=== PATIENT | male | born 1965 | race Hispanic/Latino ===

== ENCOUNTER 2018-04-19 12:48 | Emergency (ER) | payer OTHER, SELFPAY ==
[~2018-04-19] VITALS: Ht 157.5 cm; Wt 65.8 kg
[~2018-04-19 12:48] MED LIST: NKM; ONDANSETRON ODT4 MG PO; PHENERGAN25 M1 ORAL
[2018-04-19 13:00] VITALS: BP 135/85
[2018-04-19 15:00] VITALS: BP 125/78
--- NOTE | 2018-04-19 15:41 | Emergency Room Report ---
History of Present Illness General Chief Complaint: Alcohol Intoxication Source: Patient Present Illness HPI The patient is brought in by paramedics. Initially they stated that he just wanted a place to sober up. When he was brought back and evaluated he complains about 2 weeks of epigastric abdominal pain. He states he's also been vomiting blood and there is blood when he is moving his bowels. He states his been seen in hospitals prior to his visit with us here. He doesn't know the diagnosis. He does drink alcohol daily. He denies seizures. The pain is 9-10/ 10 at this time. He states it's constant and burning. He gets the shakes when he stops drinking. No fevers, chills, dysuria, extremity pain, chest pain, cough, dyspnea, headache , trauma. He's been seen here with abdominal pain and hiccups in the past. Also has dx of thrombocytopenia. Allergies: Coded Allergies: No Known Allergies (Verified , 04/13/11) Patient History Past Medical History: see triage record Social History: Reports: alcohol use Social History Narrative on straight Reviewed Nursing Documentation: PMH: Agreed; PSxH: Agreed Nursing Documentation-PMH Past Medical History: No History, Except For Hx Cardiac Problems: No Hx Diabetes: Yes Hx Cancer: No Hx Gastrointestinal Problems: Yes - gerd hx abdominal problems History Of Psychiatric Problem: Yes - etoh abuse Hx Neurological Problems: No Review of Systems All Other Systems: negative except mentioned in HPI Physical Exam Vital Signs Date Time Temp Pulse Resp B/P (MAP) Pulse Ox O2 Delivery O2 Flow Rate FiO2 04/19/18 12:37 98.2 98 16 135/85 96 Room Air 98.2 Sp02 EP Interpretation: reviewed, normal General Appearance: well appearing, no apparent distress, GCS 15 Head: normocephalic Eyes: bilateral eye PERRL, bilateral eye Scleral Injection ENT: moist mucus membranes Neck: supple Respiratory: lungs clear, normal breath sounds Cardiovascular #1: regular rate, rhythm Cardiovascular #2: 2+ radial (R) Gastrointestinal: normal inspection, normal bowel sounds, no mass, non- distended, no guarding, no rebound, tenderness Musculoskeletal: back normal, gait/station normal, normal range of motion Neurologic: alert, oriented x3, grossly normal Psychiatric: anxious Skin: normal inspection, warm/dry Medical Decision Making Diagnostic Impression: Primary Impression: Pancreatitis Qualified Codes: K85.20 - Alcohol induced acute pancreatitis without necrosis or infection Additional Impressions: Abdominal pain Qualified Codes: R10.13 - Epigastric pain alcohol intoxication Thrombocytopenia Vomiting Qualified Codes: R11.2 - Nausea with vomiting, unspecified Anemia Qualified Codes: D50.8 - Other iron deficiency anemias ER Course Patient presents with a call abuse and abdominal pain. Differential includes gastritis, pancreatitis, GERD, peptic ulcer disease and alcohol intoxication amongst others. He'll be evaluated with laboratory. He'll be given Zofran and Pepcid and oral medication. Labs with elevated lipase and BA. Also H/H lower than last tested - significantly. Platelets also low. LFTs elevated. INR normal. IV hydration begun and reglan given. Concern over possible GI bleed and pancreatitis. Patient needs hospitalization. Also at risk for alcohol withdrawal. Improved. Discussed with Dr. Self who accepts the patient. Laboratory Tests Test 04/19/18 16:14 White Blood Count 10.0 K/UL (4.8-10.8) Red Blood Count 3.58 M/UL (4.70-6.10) L Hemoglobin 8.5 G/DL (14.2-18.0) L Hematocrit 29.3 % (42.0-52.0) L Mean Corpuscular Volume 82 FL (80-99) Mean Corpuscular Hemoglobin 23.6 PG (27.0-31.0) L Mean Corpuscular Hemoglobin Concent 28.8 G/DL (32.0-36.0) L Red Cell Distribution Width 18.6 % (11.6-14.8) H Platelet Count 79 K/UL (150-450) L Mean Platelet Volume 9.3 FL (6.5-10.1) Neutrophils (%) (Auto) % (45.0-75.0) Lymphocytes (%) (Auto) % (20.0-45.0) Monocytes (%) (Auto) % (1.0-10.0) Eosinophils (%) (Auto) % (0.0-3.0) Basophils (%) (Auto) % (0.0-2.0) Differential Total Cells Counted 100 Neutrophils % (Manual) 71 % (45-75) Lymphocytes % (Manual) 29 % (20-45) Monocytes % (Manual) 0 % (1-10) L Eosinophils % (Manual) 0 % (0-3) Basophils % (Manual) 0 % (0-2) Band Neutrophils 0 % (0-8) Platelet Estimate Decreased L Platelet Morphology Normal Hypochromasia 1+ Prothrombin Time 10.8 SEC (9.30-11.50) Prothrombin Time INR 1.0 (0.9-1.1) PTT 27 SEC (23-33) Urine Color [place] Urine Appearance Cloudy Urine pH 6 (4.5-8.0) Urine Specific [place] 1.020 (1.005-1.035) Urine Protein 3+ (NEGATIVE) H Urine Glucose (UA) Negative (NEGATIVE) Urine Ketones 4+ (NEGATIVE) H Urine Occult Blood 2+ (NEGATIVE) H Urine Nitrite Negative (NEGATIVE) Urine Bilirubin 1+ (NEGATIVE) H Urine Ictotest Negative Urine Urobilinogen 4 MG/DL (0.0-1.0) H Urine Leukocyte Esterase 1+ (NEGATIVE) H Urine RBC 2-4 /HPF (0 - 0) H Urine WBC 5-10 /HPF (0 - 0) H Urine Squamous Epithelial Cells Occasional /LPF Urine Amorphous Sediment Moderate /LPF (NONE) H Urine Bacteria Few /HPF (NONE) Urine Granular Casts 0-2 /LPF (NONE) H Sodium Level 137 MMOL/L (136-145) Potassium Level 4.3 MMOL/L (3.5-5.1) Chloride Level 94 MMOL/L (98-107) L Carbon Dioxide Level 21 MMOL/L (21-32) Anion Gap 22 mmol/L (5-15) H Blood Urea Nitrogen 21 mg/dL (7-18) H Creatinine 1.2 MG/DL (0.55-1.30) Estimate Glomerular Filtration Rate > 60 mL/min (>60) Glucose Level 115 MG/DL (74-106) H Calcium Level 8.9 MG/DL (8.5-10.1) Total Bilirubin 1.1 MG/DL (0.2-1.0) H Direct Bilirubin 0.6 MG/DL (0.0-0.3) H Aspartate Amino Transferase (AST) 112 U/L (15-37) H Alanine Aminotransferase (ALT) 86 U/L (12-78) H Alkaline Phosphatase 96 U/L (46-116) Total Creatine Kinase 85 U/L (26-308) Total Protein 9.1 G/DL (6.4-8.2) H Albumin 4.5 G/DL (3.4-5.0) Globulin 4.6 g/dL Albumin/Globulin Ratio 1.0 (1.0-2.7) Lipase 1700 U/L (73-393) H Urine Opiates Screen Negative (NEGATIVE) Urine Barbiturates Screen Negative (NEGATIVE) Phencyclidine (PCP) Screen Negative (NEGATIVE) Urine Amphetamines Screen Negative (NEGATIVE) Urine Benzodiazepines Screen Negative (NEGATIVE) Urine Cocaine Screen Negative (NEGATIVE) Urine Marijuana (THC) Screen Negative (NEGATIVE) Serum Alcohol 393 mg/dL Other X-Ray Diagnostic Results Other X-Ray Diagnostic Results : X-Ray ordered: abd # of Views/Limited Vs Complete: 1 View Indication: Other EP Interpretation: Yes Interpretation: nonspecific bowel gas, no sbo, other - no masses Impression: No acute disease Electronically Signed by: Lukas Mujica MD Last Vital Signs Date Time Temp Pulse Resp B/P (MAP) Pulse Ox O2 Delivery O2 Flow Rate FiO2 04/19/18 20:20 97.8 108 16 142/84 97 Room Air 97.8 Status: improved Disposition: XFER SHT-TRM HOSP Condition: Serious Lukas Mujica M.D. Apr 19, 2018 15:41
[2018-04-19] MEDS ORDERED: Lidocaine 2% Visc 15ml soln ORAL ONE (15:45)
[2018-04-19] MEDS ORDERED: Mylanta II UD 30ml ORAL ONE (15:45)
[2018-04-19 17:00] VITALS: BP 121/74
[2018-04-19 17:01] LABS: APPEARANCE,URINE CLOUDY; BILIRUBIN, URINE 1+ (NEGATIVE); GLUCOSE, URINE (UA) NEGATIVE (NEGATIVE); KETONES,URINE 4+ (NEGATIVE); LEUKOCYTE ESTERASE ,URINE 1+ (NEGATIVE); NITRITE,URINE NEGATIVE (NEGATIVE); PH,URINE 6 (4.5-8.0); PROTEIN,URINE 3+ (NEGATIVE); UROBILINOGEN,URINE 4 MG/DL (0.0-1.0)
[2018-04-19 17:05] LABS: HEMATOCRIT 29.3 % (42.0-52.0); HEMOGLOBIN 8.5 G/DL (14.2-18.0); MEAN CORPUSCULAR VOLUME 82 FL (80-99); PLATELET COUNT 79 K/UL (150-450); RED BLOOD COUNT 3.58 M/UL (4.70-6.10); RED CELL DISTRIBUTION WIDTH 18.6 % (11.6-14.8)
[2018-04-19 17:07] LABS: COLOR,URINE AMBER
[2018-04-19 17:26] LABS: ANION GAP 22 mmol/L (5-15); BLOOD UREA NITROGEN 21 mg/dL (7-18); CALCIUM 8.9 MG/DL (8.5-10.1); CARBON DIOXIDE 21 MMOL/L (21-32); CHLORIDE 94 MMOL/L (98-107); CREATININE 1.2 MG/DL (0.55-1.30); POTASSIUM 4.3 MMOL/L (3.5-5.1); SODIUM 137 MMOL/L (136-145)
[2018-04-19 17:39] LABS: CREATINE KINASE 85 U/L (26-308)
[2018-04-19 17:40] LABS: ALANINE AMINOTRANSFERASE 86 U/L (12-78); ALBUMIN 4.5 G/DL (3.4-5.0); ALKALINE PHOSPHATASE 96 U/L (46-116); ASPARTATE AMINO TRANSFERASE 112 U/L (15-37); BILIRUBIN,TOTAL 1.1 MG/DL (0.2-1.0)
[2018-04-19 17:41] LABS: BILIRUBIN,DIRECT 0.6 MG/DL (0.0-0.3)
[2018-04-19] MEDS ORDERED: DiphenhydrAMINE 50mg/ml Inj IVP ONE (18:30)
[2018-04-19] MEDS ORDERED: Metoclopramide 10mg/2ml Inj IVP ONE (18:30)
[2018-04-19 19:00] VITALS: BP 118/69
[2018-04-19 20:20] VITALS: BP 142/84
--- NOTE | 2018-04-20 10:50 | Diagnostic Imaging Report ---
Indication: Abdominal pain Technique: Supine view of the abdomen Comparison: [employer] image from 01/05/[address] Findings: Bowel gas pattern is unremarkable. There is a subacute right posterior ninth rib fracture deformity. This demonstrates callus formation but persistent fracture line. No unusual masses or calcifications Impression: No acute process
== END 2018-04-19 20:20 | disposition short-term general hospital (02) ==
LOC: EDBD 12:48 → EMR 13:45
DX: K85.20 Alcohol induced acute pancreatitis without necrosis or infection (principal); R10.13 Epigastric pain; D69.6 Thrombocytopenia, unspecified; D50.8 Other iron deficiency anemias; F10.129 Alcohol abuse with intoxication, unspecified; Y90.8 Blood alcohol level of 240 mg/100 ml or more; E11.9 Type 2 diabetes mellitus without complications; K21.9 Gastro-esophageal reflux disease without esophagitis
CPT/HCPCS: 36415; 74018; 80053; 80307; 80329; 81003; 82248; 82550; 83690; 85007; 85025; 85610; 85730; 99285; J1200; J2765

== ENCOUNTER 2019-05-25 21:28 | Emergency (ER) | payer OTHER ==
[~2019-05-25] VITALS: Ht 165.1 cm; Wt 72.6 kg
[2019-05-25 21:30] VITALS: BP 151/89
--- NOTE | 2019-05-25 21:32 | NUR ---
ED Nurse Note: Patient biba RA 26 from home c/o non radiating left sided chest pain that he rates a 8/, states that this has been an on going issue for the past 4 days, patient does have a history of cirrhosis and admits to drinking earlier today, no skin issues noted. patient is alert and oriented x4. IV started on right forearm 20 gauge, patient presents with an elevated heart rate of 125 in the EKG
[2019-05-25 22:08] LABS: HEMATOCRIT 45.4 % (42.0-52.0); WHITE BLOOD COUNT 7.2 K/UL (4.8-10.8)
--- NOTE | 2019-05-25 22:08 | Emergency Room Report ---
History of Present Illness General Chief Complaint: Chest Pain Source: Patient Present Illness HPI This is a 53-year-old male with a history of alcoholism and cirrhosis. He presents with left-sided chest pain is been ongoing for 4 to 5 days. Constant in nature. Worse tonight. No radiation. Has been drinking. Denies any fever chills but denies any nausea or vomiting. Nothing made it better. Nothing made it worse. No exertional component. Allergies: Coded Allergies: No Known Allergies (Verified , 04/13/11) Patient History Past Medical History: see triage record, old chart reviewed Past Surgical History: other Pertinent Family History: none Social History: Denies: smoking Immunizations: other Reviewed Nursing Documentation: PMH: Agreed; PSxH: Agreed Nursing Documentation-PMH Past Medical History: No History, Except For Hx Cardiac Problems: No - PNA CIRRHOSIS Hx Diabetes: Yes Hx Cancer: No Hx Gastrointestinal Problems: Yes - gerd Hx Neurological Problems: No Review of Systems Eye: Denies: eye pain, blurred vision ENT: Denies: ear pain, nose congestion, throat swelling Respiratory: Denies: cough, shortness of breath Cardiovascular: Reports: chest pain; Denies: palpitations Gastrointestinal: Denies: abdominal pain, diarrhea, nausea, vomiting Musculoskeletal: Denies: back pain, joint pain Skin: Denies: rash Neurological: Denies: headache, numbness Endocrine: Denies: increased thirst, increased urine Hematologic/Lymphatic: Denies: easy bruising All Other Systems: negative except mentioned in HPI Physical Exam Vital Signs Date Time Temp Pulse Resp B/P (MAP) Pulse Ox O2 Delivery O2 Flow Rate FiO2 05/25/19 21:29 98.6 134 14 127/86 (100) 95 Room Air Vitals with tachycardia Sp02 EP Interpretation: reviewed, normal General Appearance: well appearing, no apparent distress, alert, Chronically Ill - Intoxicated Head: normocephalic, atraumatic Eyes: bilateral eye PERRL, bilateral eye EOMI ENT: hearing grossly normal, normal pharynx Neck: full range of motion, supple, no meningismus Respiratory: chest non-tender, lungs clear, normal breath sounds Cardiovascular #1: regular rate, rhythm, no murmur, tachycardia - Heart rate 110 Gastrointestinal: normal bowel sounds, non tender, no mass, no organomegaly, no bruit, non-distended Musculoskeletal: back normal, gait/station normal, normal range of motion Psychiatric: mood/affect normal Medical Decision Making Diagnostic Impression: Primary Impression: Chest pain Qualified Codes: R07.9 - Chest pain, unspecified Additional Impressions: Alcohol intoxication Qualified Codes: F10.920 - Alcohol use, unspecified with intoxication, uncomplicated Alcoholic liver disease ER Course Patient presents with vague chest pain. Troponin negative. He does have evidence of alcoholic liver disease. No evidence of pancreatitis. He was getting tremulous after a few hours. I gave him Ativan and Librium. Heart rate improved greatly. Patient wants to go home now. No suicidal thoughts or homicidal thoughts. No criteria for 5150. EKG Diagnostic Results Rate: tachycardiac Rhythm: NSR ST Segments: other - NSST changes Rhythm Strip Diag. Results EP Interpretation: yes Rate: 100 Rhythm: NSR, no PVC's, no ectopy Last Vital Signs Date Time Temp Pulse Resp B/P (MAP) Pulse Ox O2 Delivery O2 Flow Rate FiO2 05/25/19 21:30 134 14 Room Air 05/25/19 21:30 98.6 151/89 95 Status: improved Disposition: HOME, SELF-CARE Condition: Stable Scripts Chlordiazepoxide (Chlordiazepoxide HCl) 25 Mg Capsule 25 MG ORAL THREE TIMES A DAY, #21 CAP 0 Refills Prov: Kings Carrillo MD 05/26/19 Additional Instructions: Stop drinking alcohol. Follow-up with rehab within a week. Follow-up with your doctor in 7 days. Return if worse. Kings Carrillo MD May 25, 2019 22:08
[2019-05-25 22:09] LABS: MEAN CORPUSCULAR VOLUME 97 FL (80-99); PLATELET COUNT 59 K/UL (150-450); RED CELL DISTRIBUTION WIDTH 11.3 % (11.6-14.8)
[2019-05-25 22:13] LABS: ANION GAP 18 mmol/L (5-15); BLOOD UREA NITROGEN 16 mg/dL (7-18); CALCIUM 9.3 MG/DL (8.5-10.1); CARBON DIOXIDE 23 MMOL/L (21-32); CHLORIDE 96 MMOL/L (98-107); CREATININE 1.1 MG/DL (0.55-1.30); POTASSIUM 4.1 MMOL/L (3.5-5.1); SODIUM 137 MMOL/L (136-145)
[2019-05-25 22:24] LABS: APPEARANCE,URINE CLEAR; BILIRUBIN, URINE 1+ (NEGATIVE); GLUCOSE, URINE (UA) NEGATIVE (NEGATIVE); KETONES,URINE 4+ (NEGATIVE); LEUKOCYTE ESTERASE ,URINE NEGATIVE (NEGATIVE); NITRITE,URINE NEGATIVE (NEGATIVE); PH,URINE 6 (4.5-8.0); PROTEIN,URINE 4+ (NEGATIVE); UROBILINOGEN,URINE 8 MG/DL (0.0-1.0)
[2019-05-25 22:27] LABS: COLOR,URINE AMBER
[2019-05-25 22:27] LABS: ALANINE AMINOTRANSFERASE 113 U/L (12-78); ALBUMIN 4.3 G/DL (3.4-5.0); ALKALINE PHOSPHATASE 95 U/L (46-116); ASPARTATE AMINO TRANSFERASE 198 U/L (15-37); BILIRUBIN,DIRECT 0.5 MG/DL (0.0-0.3); BILIRUBIN,TOTAL 1.2 MG/DL (0.2-1.0); CKMB 1.2 NG/ML (0.0-3.6); CREATINE KINASE 62 U/L (26-308)
[2019-05-25] MEDS ORDERED: LORazepam Inj 2mg/ml 1ml IV ONE (23:45)
[2019-05-25] MEDS ORDERED: chlordiazePOXIDE 25mg Cap ORAL ONE (23:45)
[2019-05-26] MEDS ORDERED: LIBRIUM25 MG ORAL (01:27)
--- NOTE | 2019-05-26 01:30 | NUR ---
ER DISCHARGE NOTE: Patient is cleared to be discharged per ERMD, pt is aox4, on room air, with stable vital signs. pt was given dc and prescription instructions, pt was able to verbalize understanding, pt id band and iv site removed without complications. pt is able to ambulate with steady gait. pt took all belongings.
[2019-05-26 01:34] VITALS: BP 144/82
--- NOTE | 2019-05-26 14:06 | Diagnostic Imaging Report ---
Indication: Chest pain Comparison: 04/03/2014 A single view chest radiograph was obtained. Findings: No definite infiltrate or pulmonary vascular congestion identified. The heart is enlarged. The aorta is mildly enlarged consistent with atherosclerotic vascular disease. The bones are osteopenic. There are old rib fractures on the left. Impression: No acute disease
--- NOTE | 2019-05-26 17:04 | Cardiology Report ---
APPROVED REPORT EKG Measurement Heart [id number] NV 88P [id number] Sinus tachycardia with short NV Cannot rule out Anterior infarct, age undetermined Abnormal ECG
== END 2019-05-26 01:35 | disposition home or self-care (01) ==
LOC: EDBD 21:28 → EMR 22:00
DX: R07.9 Chest pain, unspecified (principal); F10.129 Alcohol abuse with intoxication, unspecified; K70.9 Alcoholic liver disease, unspecified; E11.9 Type 2 diabetes mellitus without complications; K21.9 Gastro-esophageal reflux disease without esophagitis; R00.0 Tachycardia, unspecified
CPT/HCPCS: 36415; 71045; 80053; 80307; 80329; 81003; 82248; 82550; 82553; 83690; 83880; 84484; 85007; 85025; 93005; 96361; 96374; 96375; 99284; S0028

== ENCOUNTER 2019-07-19 14:18 | Emergency (ER) | payer OTHER ==
[~2019-07-19] VITALS: Ht 162.6 cm; Wt 63.5 kg
[~2019-07-19 14:18] MED LIST changes: +LIBRIUM25 MG ORAL
--- NOTE | 2019-07-19 14:24 | NUR ---
ED Nurse Note: No family member available.
--- NOTE | 2019-07-19 14:30 | NUR ---
ED Nurse Note: Pt brought in by EMS from home due to medial abd. pain x 6 days with N/V. Pt denies alcohol consumption but relative reported that pt drinks every night. AAO x4, ambulatory, follows commands with non labored breathing. Noted bilateral hand tremors and mild restlessness.
[2019-07-19 14:31] VITALS: BP 158/106
[2019-07-19] MEDS ORDERED: Metoclopramide 10mg/2ml Inj IVP ONE (15:00)
[2019-07-19 15:18] LABS: ANION GAP 22 mmol/L (5-15); BLOOD UREA NITROGEN 17 mg/dL (7-18); CALCIUM 9.1 MG/DL (8.5-10.1); CARBON DIOXIDE 20 MMOL/L (21-32); CHLORIDE 96 MMOL/L (98-107); POTASSIUM 4.4 MMOL/L (3.5-5.1); SODIUM 138 MMOL/L (136-145)
[2019-07-19 15:21] LABS: HEMATOCRIT 46.3 % (42.0-52.0); HEMOGLOBIN 15.5 G/DL (14.2-18.0); MEAN CORPUSCULAR VOLUME 97 FL (80-99); PLATELET COUNT 61 K/UL (150-450); RED BLOOD COUNT 4.75 M/UL (4.70-6.10); RED CELL DISTRIBUTION WIDTH 12.6 % (11.6-14.8); WHITE BLOOD COUNT 6.2 K/UL (4.8-10.8)
[2019-07-19 15:28] LABS: ALANINE AMINOTRANSFERASE 164 U/L (12-78); ALBUMIN 4.2 G/DL (3.4-5.0); ALKALINE PHOSPHATASE 91 U/L (46-116); ASPARTATE AMINO TRANSFERASE 286 U/L (15-37); BILIRUBIN,TOTAL 1.8 MG/DL (0.2-1.0)
[2019-07-19 15:29] LABS: BILIRUBIN,DIRECT 0.7 MG/DL (0.0-0.3)
[2019-07-19 16:30] VITALS: BP 139/90
[2019-07-19] MEDS ORDERED: Isovue-300 100ml vial INJ PRN (16:30)
[2019-07-19] MEDS ORDERED: LORazepam Inj 2mg/ml 1ml IV ONE (16:30)
[2019-07-19] MEDS ORDERED: Thiamine HCl 100 MG in D5W 55 ML IVPB ONE (16:30)
--- NOTE | 2019-07-19 16:30 | NUR ---
ED Nurse Note: Pt taken to CT via eduardo Kirk.
[2019-07-19 16:52] LABS: APPEARANCE,URINE CLEAR; BILIRUBIN, URINE 1+ (NEGATIVE); COLOR,URINE BROWN; GLUCOSE, URINE (UA) NEGATIVE (NEGATIVE); KETONES,URINE 4+ (NEGATIVE); LEUKOCYTE ESTERASE ,URINE 1+ (NEGATIVE); NITRITE,URINE NEGATIVE (NEGATIVE); PH,URINE 5 (4.5-8.0); PROTEIN,URINE 3+ (NEGATIVE); UROBILINOGEN,URINE 8 MG/DL (0.0-1.0)
--- NOTE | 2019-07-19 16:58 | Emergency Room Report ---
History of Present Illness General Chief Complaint: Abdominal Pain Source: Patient, EMS Present Illness HPI Patient is a 53-year-old male brought in by EMS. Per family member after increased abdominal discomfort and increased hiccups. Patient had been having this for several days persistently. He had prior history of alcohol abuse. He reports having some epigastric abdominal pain. He denies any hematemesis or bloody stools. Patient had not been having any bleeding episodes. He reportedly drinks daily. Allergies: Coded Allergies: No Known Allergies (Verified , 04/13/11) Patient History Past Medical History: see triage record Reviewed Nursing Documentation: PMH: Agreed; PSxH: Agreed Nursing Documentation-PMH Past Medical History: No History, Except For Hx Cardiac Problems: No - PNA CIRRHOSIS Hx Diabetes: Yes Hx Cancer: No Hx Gastrointestinal Problems: Yes - Liver problem Hx Neurological Problems: No Review of Systems All Other Systems: negative except mentioned in HPI Physical Exam Vital Signs Date Time Temp Pulse Resp B/P (MAP) Pulse Ox O2 Delivery O2 Flow Rate FiO2 07/19/19 14:20 97.3 110 25 172/107 (128) 100 Room Air Sp02 EP Interpretation: reviewed, normal General Appearance: normal inspection, well appearing, no apparent distress, alert, GCS 15, Chronically Ill Head: atraumatic ENT: normal ENT inspection, hearing grossly normal, normal voice Neck: normal inspection, full range of motion, supple, no bony tend Respiratory: normal inspection, lungs clear, normal breath sounds, no respiratory distress, no retraction, no wheezing Cardiovascular #1: regular rate, rhythm, no edema Gastrointestinal: normal inspection, normal bowel sounds, non tender, soft, no guarding, no hernia Genitourinary: no CVA tenderness Musculoskeletal: normal inspection, back normal, normal range of motion Neurologic: normal inspection, alert, oriented x3, responsive, 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 Differential diagnosis include was not limited to pancreatitis, gastritis, hepatitis among others. Because of complexity of patient's case laboratory tests and imaging studies were ordered. Patient was noted to have some evidence of chronic alcohol abuse. Patient was noted to have chronic hiccups. Patient was given IV fluids as well as antiemetics. Patient stated that he felt better and wanted to leave. Patient was advised that he had pancreatitis and was noted to be drinking alcohol recently. Patient was offered admission and was discussed with Dr. Melendez for possible transfer to [facility]. Patient stated he did not want to be hospitalized and wanted to leave the hospital immediately. Patient appears to be capable of self-care and does not appear to be holdable based on mental status. The patient was advised risk benefits alternatives of leaving AGAINST MEDICAL ADVICE and he indicated understanding and all questions are answered patient still continued want to leave and signed AGAINST MEDICAL ADVICE. Despite risks including but not limited to disability and worsening of current lifestyle. He was advised he could return at any time. Labs Test 07/19/19 14:30 07/19/19 16:05 White Blood Count 6.2 K/UL (4.8-10.8) Red Blood Count 4.75 M/UL (4.70-6.10) Hemoglobin 15.5 G/DL (14.2-18.0) Hematocrit 46.3 % (42.0-52.0) Mean Corpuscular Volume 97 FL (80-99) Mean Corpuscular Hemoglobin 32.6 PG (27.0-31.0) Mean Corpuscular Hemoglobin Concent 33.4 G/DL (32.0-36.0) Red Cell Distribution Width 12.6 % (11.6-14.8) Platelet Count 61 K/UL (150-450) Mean Platelet Volume 8.0 FL (6.5-10.1) Neutrophils (%) (Auto) % (45.0-75.0) Lymphocytes (%) (Auto) % (20.0-45.0) Monocytes (%) (Auto) % (1.0-10.0) Eosinophils (%) (Auto) % (0.0-3.0) Basophils (%) (Auto) % (0.0-2.0) Sodium Level 138 MMOL/L (136-145) Potassium Level 4.4 MMOL/L (3.5-5.1) Chloride Level 96 MMOL/L (98-107) Carbon Dioxide Level 20 MMOL/L (21-32) Anion Gap 22 mmol/L (5-15) Blood Urea Nitrogen 17 mg/dL (7-18) Creatinine 1.0 MG/DL (0.55-1.30) Estimat Glomerular Filtration Rate > 60 mL/min (>60) Glucose Level 105 MG/DL (74-106) Calcium Level 9.1 MG/DL (8.5-10.1) Total Bilirubin 1.8 MG/DL (0.2-1.0) Direct Bilirubin 0.7 MG/DL (0.0-0.3) Aspartate Amino Transf (AST/SGOT) 286 U/L (15-37) Alanine Aminotransferase (ALT/SGPT) 164 U/L (12-78) Alkaline Phosphatase 91 U/L (46-116) Troponin I 0.000 ng/mL (0.000-0.056) Total Protein 8.6 G/DL (6.4-8.2) Albumin 4.2 G/DL (3.4-5.0) Globulin 4.4 g/dL Albumin/Globulin Ratio 1.0 (1.0-2.7) Lipase 467 U/L (73-393) Serum Alcohol 339 mg/dL Urine Color Brown Urine Appearance Clear Urine pH 5 (4.5-8.0) Urine Specific [place] 1.020 (1.005-1.035) Urine Protein 3+ (NEGATIVE) Urine Glucose (UA) Negative (NEGATIVE) Urine Ketones 4+ (NEGATIVE) Urine Blood 3+ (NEGATIVE) Urine Nitrite Negative (NEGATIVE) Urine Bilirubin 1+ (NEGATIVE) Urine Urobilinogen 8 MG/DL (0.0-1.0) Urine Leukocyte Esterase 1+ (NEGATIVE) Last Vital Signs Date Time Temp Pulse Resp B/P (MAP) Pulse Ox O2 Delivery O2 Flow Rate FiO2 07/19/19 14:31 97.3 93 22 158/106 100 Room Air Status: improved Disposition: AGAINST MEDICAL ADVICE Condition: Stable Referrals: [facility],REFERRING (PCP) Ousmane Birmingham MD Jul 19, 2019 16:58
--- NOTE | 2019-07-19 17:03 | Diagnostic Imaging Report ---
Clinical Indication: Abdominal pain for 6 days, nausea, vomiting Technique: No oral contrast utilized, per emergency room physician request IV administration nonionic contrast. Venous obtained through the abdomen and pelvis. Multiplanar reconstructions were generated. Total dose length product 644.02 mGycm. CTDIvol(s) 11.36 mGy. Dose reduction achieved using automated exposure control Comparison: 10/15/2012 Findings: Lack of enteric contrast administration limits assessment of the GI tract. There is some image degradation due to respiratory motion artifact. The appendix is normal. There is colonic diverticulosis. No evidence of diverticulitis. There is equivocal mild wall thickening of the ascending colon and of the distal descending and sigmoid colon. No free or loculated intraperitoneal gas or fluid is evident. The distal esophagus demonstrates mild wall thickening and there may be a small sliding-type hiatal hernia. The stomach is otherwise unremarkable. The duodenum is unremarkable. The liver is diffusely hypoattenuating, consistent with fatty change. This is also evident previously. The gallbladder is unremarkable. The common bile duct is mildly ectatic, measuring up to 8 mm in diameter. An irregular high attenuation focus is seen adjacent to but probably not within the downstream common bile duct. It is probably within the pancreatic head, not evident previously. There is no intrahepatic biliary ductal dilatation. The pancreas, spleen, adrenals, left kidney are unremarkable. The right kidney demonstrates a 3 mm lower pole calyceal calculus which is not evident on the prior exam. No ureteral calculi, hydronephrosis, or hydroureter demonstrated. The bladder is unremarkable. The prostate is somewhat prominent. Somewhat enlarged peripancreatic nodes demonstrated on the previous study are not evident currently. The included lung bases are clear although degraded by motion artifact. The bones demonstrate degenerative spondylosis changes. There is unilateral L5 spondylolysis on the left. No associated spondylolisthesis. Impression: Limited assessment of the GI tract due to lack of enteric contrast demonstration. Exam is also somewhat limited due to artifact Equivocal areas of colon wall thickening, probably artifact of under distention but could indicate colitis. Correlate with clinical findings Colonic diverticulosis. No evidence of diverticulitis. Mild distal esophageal wall thickening, could indicate esophagitis. Fatty liver Mildly ectatic common bile duct, without definite downstream obstructive lesion. Correlate with liver function tests, consider MRCP if clinically indicated Pancreatic head calcification, not evident previously, could indicate history of chronic calcifying pancreatitis. 3 mm nonobstructive right lower pole intrarenal calculus Unilateral left L5 spondylolysis. No evidence of spondylolisthesis The CT scanner at [facility] is accredited by the [employer] and the scans are performed using protocols designed to limit radiation exposure to as low as reasonably achievable to attain images of sufficient resolution adequate for diagnostic evaluation.
--- NOTE | 2019-07-19 17:07 | NUR ---
ED Nurse Note: Pt decided to sign AMA form and Dr Birmingham aware. Pt verbalized understanding of potential complications of not getting treatment. ER charge nurse notified.
[2019-07-19 17:24] VITALS: BP 142/77
--- NOTE | 2019-07-19 17:24 | NUR ---
ER DISCHARGE NOTE: Pt signed AMA form and verbalized understanding of potential complications of not getting hospitalized. Pt aware of pancreatitis and was told he can go back to ED at anytime. ID band/IV removed. AAO x4 and ambulates with steady agit. Pt took all belongings and left with his family members.
== END 2019-07-19 17:24 | disposition home or self-care (01) ==
LOC: EDBD 14:18 → EMR 14:48 → EDBEDREQ 16:25 → EMR 17:24
DX: K85.90 Acute pancreatitis without necrosis or infection, unspecified (principal); R10.9 Unspecified abdominal pain; F10.129 Alcohol abuse with intoxication, unspecified; K74.60 Unspecified cirrhosis of liver; E11.9 Type 2 diabetes mellitus without complications; Y90.8 Blood alcohol level of 240 mg/100 ml or more
CPT/HCPCS: 36415; 74177; 80053; 80329; 81003; 82248; 83690; 84484; 85007; 85025; 86850; 86900; 86901; 96365; 96367; 96375; J2765; Q9967; S0028; Z7502; 99284

== ENCOUNTER 2019-09-13 17:37 | Inpatient (IN) | payer OTHER ==
[~2019-09-13] VITALS: Ht 170.2 cm; Wt 45.4 kg
--- NOTE | 2019-09-13 18:20 | NUR ---
ED Nurse Note: Pt brought in by ambulance from home due to ETOH intoxication. Pt drowsy and confused. No acute distress noted. Pt in gown and placed on barrel builder.
--- NOTE | 2019-09-13 18:22 | NUR ---
ED Nurse Note: pt placed in personnel monitor.
[2019-09-13 18:33] VITALS: BP 134/97
[2019-09-13] MEDS ORDERED: LORazepam Inj 2mg/ml 1ml IV ONE ×3 (18:45→22:00)
--- NOTE | 2019-09-13 19:05 | NUR ---
ED Nurse Note: arrived. per pt did not eat anything for 5 days and had alcohol only. per , pt had blood in stool and vomit yesterday and today. pt vomiting currently but no blood noted.
--- NOTE | 2019-09-13 19:07 | NUR ---
HAND-OFF: Report given to VAN Christopher. urine needs to be collected.
[2019-09-13 19:23] LABS: INR 1.1 (0.9-1.1)
[2019-09-13 19:28] LABS: ANION GAP 17 mmol/L (5-15); BLOOD UREA NITROGEN 23 mg/dL (7-18); CALCIUM 8.8 MG/DL (8.5-10.1); CARBON DIOXIDE 24 MMOL/L (21-32); CHLORIDE 102 MMOL/L (98-107); CREATININE 1.1 MG/DL (0.55-1.30); POTASSIUM 3.8 MMOL/L (3.5-5.1); SODIUM 143 MMOL/L (136-145)
[2019-09-13 19:31] LABS: HEMATOCRIT 39.9 % (42.0-52.0); HEMOGLOBIN 13.6 G/DL (14.2-18.0); MEAN CORPUSCULAR VOLUME 97 FL (80-99); PLATELET COUNT 61 K/UL (150-450); RED BLOOD COUNT 4.13 M/UL (4.70-6.10); WHITE BLOOD COUNT 8.6 K/UL (4.8-10.8)
[2019-09-13 19:36] LABS: ALANINE AMINOTRANSFERASE 114 U/L (12-78); ALBUMIN 3.8 G/DL (3.4-5.0); ALBUMIN/GLOBULIN RATIO 0.9 (1.0-2.7); ALKALINE PHOSPHATASE 84 U/L (46-116); ASPARTATE AMINO TRANSFERASE 158 U/L (15-37); BILIRUBIN,TOTAL 0.8 MG/DL (0.2-1.0)
[2019-09-13] MEDS ORDERED: Pantoprazole Inj IVP ONE (19:45)
[2019-09-13] MEDS ORDERED: Haloperidol 5mg/ml Inj IM ONE (20:15)
[2019-09-13] MEDS ORDERED: LORazepam Inj 2mg/ml 1ml IV PRN (20:30)
--- NOTE | 2019-09-13 21:38 | NUR ---
Elder rebolledo in EDM - 09/13/19 at 2151 by OZZIE ED Note: Report given to VAN GREGORY
[2019-09-13] MEDS ORDERED: Folic Acid 1 MG, Multivitamin - 12 Injection 10 ML, Thiamine HCl 100 MG in Sodium Chlor... IV ONE (22:00)
[2019-09-13] MEDS: Pantoprazole Inj IV SCH (22:03)
--- NOTE | 2019-09-13 22:13 | NUR ---
NURSE NOTES: Received pt from ED via [facility]. Pt transferred to 211-1 without any incident. Received report from VAN Christopher. Pt is admitted for ETOH withdrawal and lower GI bleed. Pt is A/Ox0, arousable to shaking. Pt is currently asleep; unable to communicate when asked questions. secured entrance monitor is in placed, IV site intact, asymptomatic, and patent. Bed is in the lowest position and locked. Call light within reach. No signs/symptoms of acute distress noted at this time. Received orders from Dr. Alfred. Will note and carry out.
--- NOTE | 2019-09-13 22:13 | Emergency Room Report ---
History of Present Illness General Chief Complaint: Gastrointestinal Bleed Source: Patient, Family Member Present Illness HPI 53-year-old male presents ED for evaluation. Brought in by EMS with vomiting from home. Per EMS patient drank alcohol. patient drinks alcohol daily. Per sister she told EMS that patient also had blood in his stool. Has had this problem in the past. Denies chest pain or shortness of breath. Denies abdominal pain. No other aggravating relieving factors. Denies any other associated symptoms Allergies: Coded Allergies: No Known Allergies (Verified , 04/13/11) Patient History Past Medical History: DM, HTN Past Surgical History: none Pertinent Family History: none Social History: Reports: alcohol use; Denies: smoking, drug use Immunizations: UTD Reviewed Nursing Documentation: PMH: Agreed; PSxH: Agreed Nursing Documentation-PMH Hx Cardiac Problems: No - PNA CIRRHOSIS Hx Hypertension: Yes Hx Diabetes: Yes Hx Cancer: No Hx Gastrointestinal Problems: Yes - Liver problem Hx Neurological Problems: No Review of Systems All Other Systems: negative except mentioned in HPI Physical Exam Vital Signs Date Time Temp Pulse Resp B/P (MAP) Pulse Ox O2 Delivery O2 Flow Rate FiO2 09/13/19 17:38 98.8 78 19 137/84 (101) 99 Room Air Sp02 EP Interpretation: reviewed, normal General Appearance: GCS 15, non-toxic, mild distress, other - intoxicated Head: normocephalic, atraumatic Eyes: bilateral eye normal inspection, bilateral eye PERRL ENT: hearing grossly normal, normal pharynx, no angioedema, normal voice Neck: full range of motion, supple/symm/no masses Respiratory: chest non-tender, lungs clear, normal breath sounds, speaking full sentences Cardiovascular #1: no edema, tachycardia Cardiovascular #2: 2+ carotid (R), 2+ carotid (L), 2+ radial (R), 2+ radial (L) , 2+ dorsalis pedis (R), 2+ dorsalis pedis (L) Gastrointestinal: normal bowel sounds, non tender, soft, non-distended, no guarding, no rebound Rectal: heme positive stool Genitourinary: normal inspection, no CVA tenderness Musculoskeletal: back normal, gait/station normal, normal range of motion, non- tender Neurologic: responsive, motor strength/tone normal, sensory intact, speech normal, other - intoxicated Psychiatric: other - intoxicated Reflexes: 3+ bicep (R), 3+ bicep (L), 3+ tricep (R), 3+ tricep (L), 3+ knee (R) , 3+ knee (L) Skin: other - see nursing skin notes Lymphatic: no adenopathy Procedures Critical Care Time Critical Care Time i. I feel this is a highly complex case requiring extensive working including EKG/Rhythm strip, Xray/CT/US, Blood/urine lab work, repeat exams while in ED, and administration of strong opiates/narcotics for pain control, admission to hospital or close patient follow up. Total time: 50 min bedside evaluation and treatment excludes procedures (EKG). Reason for critical care: tachycardia, alcohol withdrawal. LGIB Possible complications: hypotension, hypertension, IL, shock, arrhythmias, metabolic acidosis, end organ damage, respiratory failure. Interventions: labs, IVFS, EKG, protonix, zofran, guaiac exam, reassessment of tachycardia, ativan. Course: Patient presents with vomiting. Blood in stool. EtOH. Tachycardic. EKG shows sinus tachycardia. Guaiac positive. EtOH elevated. Hemoglobin/ hematocrit stable, coags okay platelets low. Tachycardia improved after Ativan , Haldol required for sedation as patient tried to remove his IV. Consultations: nursing staff, EMS, family Performed by: Dr Pastrana Tolerated well condition = serious j. because of unstable vital signs this patient had a condition that could potentially threaten life or limb. I feel this is a critical patient who required my full attention while patient was considered critical. Total Critical Care Time excluding procedures was greater than 50 minutes Medical Decision Making Diagnostic Impression: Primary Impression: Gastrointestinal hemorrhage Qualified Codes: K92.2 - Gastrointestinal hemorrhage, unspecified Additional Impression: Alcohol withdrawal Qualified Codes: F10.230 - Alcohol dependence with withdrawal, uncomplicated ER Course Hospital Course 53 yo M presents with vomiting. + ETOH. reported blood in stool. Differential diagnoses include: Alcohol intoxication, drug abuse, opioid withdrawal, alcohol withdrawal, dehydration, LGIB Clinical course Patient placed on stretcher. On saw straightener. After initial history and physical I ordered labs, IV fluids, EKG, zofran, protonix. Ativan Labs reviewed-electrolytes okay, hemoglobin/hematocrit stable, no leukocytosis, alcohol level > 300, coags ok. EKG - sinus tachycardia no acute ischemic changes interpreted by me Fairchild + stool patient very tachycardic on arrival. sinus. likely alcohol withdrawal as patient is tremulous. Patient given multiple rounds of Ativan with symptoms improved. Case discussed with Dr. James and he agreed to except the patient to his service for further care and support i. I feel this is a highly complex case requiring extensive working including EKG/Rhythm strip, Xray/CT/US, Blood/urine lab work, repeat exams while in ED, and administration of strong opiates/narcotics for pain control, admission to hospital or close patient follow up. Diagnosis - alcohol withdrawal, GI hemorrhage Admitted to telemetry in serious condition Labs Test 09/13/19 19:00 White Blood Count 8.6 K/UL (4.8-10.8) Red Blood Count 4.13 M/UL (4.70-6.10) Hemoglobin 13.6 G/DL (14.2-18.0) Hematocrit 39.9 % (42.0-52.0) Mean Corpuscular Volume 97 FL (80-99) Mean Corpuscular Hemoglobin 32.8 PG (27.0-31.0) Mean Corpuscular Hemoglobin Concent 33.9 G/DL (32.0-36.0) Red Cell Distribution Width 12.0 % (11.6-14.8) Platelet Count 61 K/UL (150-450) Mean Platelet Volume 7.9 FL (6.5-10.1) Neutrophils (%) (Auto) % (45.0-75.0) Lymphocytes (%) (Auto) % (20.0-45.0) Monocytes (%) (Auto) % (1.0-10.0) Eosinophils (%) (Auto) % (0.0-3.0) Basophils (%) (Auto) % (0.0-2.0) Differential Total Cells Counted 100 Neutrophils % (Manual) 58 % (45-75) Lymphocytes % (Manual) 39 % (20-45) Monocytes % (Manual) 2 % (1-10) Eosinophils % (Manual) 1 % (0-3) Basophils % (Manual) 0 % (0-2) Band Neutrophils 0 % (0-8) Platelet Estimate Decreased Platelet Morphology Normal Red Blood Cell Morphology Normal Prothrombin Time 12.0 SEC (9.30-11.50) Prothromb Time International Ratio 1.1 (0.9-1.1) Activated Partial Thromboplast Time 25 SEC (23-33) Sodium Level 143 MMOL/L (136-145) Potassium Level 3.8 MMOL/L (3.5-5.1) Chloride Level 102 MMOL/L (98-107) Carbon Dioxide Level 24 MMOL/L (21-32) Anion Gap 17 mmol/L (5-15) Blood Urea Nitrogen 23 mg/dL (7-18) Creatinine 1.1 MG/DL (0.55-1.30) Estimat Glomerular Filtration Rate > 60 mL/min (>60) Glucose Level 119 MG/DL (74-106) Calcium Level 8.8 MG/DL (8.5-10.1) Total Bilirubin 0.8 MG/DL (0.2-1.0) Aspartate Amino Transf (AST/SGOT) 158 U/L (15-37) Alanine Aminotransferase (ALT/SGPT) 114 U/L (12-78) Alkaline Phosphatase 84 U/L (46-116) Total Protein 8.0 G/DL (6.4-8.2) Albumin 3.8 G/DL (3.4-5.0) Globulin 4.2 g/dL Albumin/Globulin Ratio 0.9 (1.0-2.7) Lipase 125 U/L (73-393) Serum Alcohol 385 mg/dL EKG Diagnostic Results Rate: tachycardiac Rhythm: NSR ST Segments: no acute changes ASA given to the pt in ED: No Rhythm Strip Diag. Results Rhythm: NSR, no PVC's, no ectopy Last Vital Signs Date Time Temp Pulse Resp B/P (MAP) Pulse Ox O2 Delivery O2 Flow Rate FiO2 09/13/19 18:33 99.5 127 18 134/97 100 Room Air Status: improved Disposition: ADMITTED INPATIENT Condition: Serious Referrals: [facility],REFERRING (PCP) Paul Pastrana MD Sep 13, 2019 22:13
[2019-09-13 22:15] VITALS: BP 123/78
--- NOTE | 2019-09-13 22:18 | NUR ---
TRANSFER TO FLOOR: Patient transferred to as ordered, per Dr Robins. Report given to VAN MELENDEZ. Belongings and medications given to VAN Melendez. Family and or S/O informed of transfer.
--- NOTE | 2019-09-13 22:45 | NUR ---
NURSE NOTES: Contacted Dr. Alfred regarding IV fluid rate. Dr. Alfred gave orders to change rate from 500cc/hr to 100cc/hr. Will note and carry out.
[2019-09-14] VITALS: BP 136/76
[2019-09-14] MEDS ORDERED: Folic Acid 1 MG, Multivitamin - 12 Injection 10 ML, Thiamine HCl 100 MG in Sodium Chlor... IV ONE ×4
[2019-09-14 04:00] VITALS: BP 150/99
--- NOTE | 2019-09-14 04:24 | NUR ---
NURSE NOTES: Pt woke up from sleep and is able to state his full name and date of . Pt is still incoherent, drowsy and goes in and out of sleep. Will continue to monitor pt.
--- NOTE | 2019-09-14 05:33 | NUR ---
NURSE NOTES: Contacted Dr. James regarding pt's HR. Awaiting call back.
--- NOTE | 2019-09-14 06:22 | NUR ---
NURSE NOTES: Received called back from Dr. James regarding pt's HR. No orders at this time. Dr. James said give Ativan PRN as needed.
--- NOTE | 2019-09-14 06:45 | NUR ---
NURSE NOTES: Dr. Alonso made aware of pt's dark tarry stool.
--- NOTE | 2019-09-14 07:30 | General Progress Note ---
Assessment/Plan Problem List: (1) Cirrhosis ICD Codes: K74.60 - Unspecified cirrhosis of liver SNOMED: 51087222 (2) Alcohol withdrawal ICD Codes: F10.239 - Alcohol dependence with withdrawal, unspecified SNOMED: 676673429 Qualifiers: Qualified Codes: F10.230 - Alcohol dependence with withdrawal, uncomplicated (3) Thrombocytopenia ICD Codes: D69.6 - Thrombocytopenia, unspecified SNOMED: 210249689 (4) GIB (gastrointestinal bleeding) ICD Codes: K92.2 - Gastrointestinal hemorrhage, unspecified SNOMED: 45063380 Assessment/Plan: abd us ammonia level ppi banana bag EGD in am Subjective ROS Limited/Unobtainable: Yes Allergies: Coded Allergies: No Known Allergies (Verified , 04/13/11) Objective Last 24 Hour Vital Signs Date Time Temp Pulse Resp B/P (MAP) Pulse Ox O2 Delivery O2 Flow Rate FiO2 09/14/19 04:00 97.9 143 20 150/99 (116) 96 09/14/19 03:38 150 09/14/19 00:00 98.2 136 20 136/76 (96) 94 09/13/19 23:31 141 09/13/19 22:34 Room Air 09/13/19 22:27 133 09/13/19 22:18 99.0 135 20 145/98 100 Room Air 09/13/19 22:15 97.7 125 19 123/78 (93) 93 09/13/19 18:33 99.5 127 18 134/97 100 Room Air 09/13/19 18:33 75 18 Room Air 09/13/19 17:38 98.8 78 19 137/84 (101) 99 Room Air Intake and Output 09/13/19 09/14/19 19:00 07:00 Intake Total 0 ml 1200 ml Balance 0 ml 1200 ml Intake Oral 0 ml IV Total 1200 ml # Voids 2 # Bowel Movements 1 Laboratory Tests 09/13/19 19:00: White Blood Count 8.6, Red Blood Count 4.13L, Hemoglobin 13.6L, Hematocrit 39.9L , Mean Corpuscular Volume 97, Mean Corpuscular Hemoglobin 32.8H, Mean Corpuscular Hemoglobin Concent 33.9, Red Cell Distribution Width 12.0, Platelet Count 61L, Mean Platelet Volume 7.9, Neutrophils (%) (Auto) , Lymphocytes (%) ( Auto) , Monocytes (%) (Auto) , Eosinophils (%) (Auto) , Basophils (%) (Auto) , Differential Total Cells Counted 100, Neutrophils % (Manual) 58, Lymphocytes % ( Manual) 39, Monocytes % (Manual) 2, Eosinophils % (Manual) 1, Basophils % ( Manual) 0, Band Neutrophils 0, Platelet Estimate DecreasedL, Platelet Morphology Normal, Red Blood Cell Morphology Normal, Prothrombin Time 12.0H, Prothromb Time International Ratio 1.1, Activated Partial Thromboplast Time 25, Sodium Level 143, Potassium Level 3.8, Chloride Level 102, Carbon Dioxide Level 24, Anion Gap 17H, Blood Urea Nitrogen 23H, Creatinine 1.1, Estimat Glomerular Filtration Rate > 60, Glucose Level 119H, Calcium Level 8.8, Total Bilirubin 0.8 , Aspartate Amino Transf (AST/SGOT) 158H, Alanine Aminotransferase (ALT/SGPT) 114H, Alkaline Phosphatase 84, Total Protein 8.0, Albumin 3.8, Globulin 4.2, Albumin/Globulin Ratio 0.9L, Lipase 125, Serum Alcohol 385 Height (Feet): 5 Height (Inches): 7.00 Weight (Pounds): 165 General Appearance: alert EENT: PERRL/EOMI Neck: supple Cardiovascular: normal rate Respiratory/Chest: decreased breath sounds Abdomen: normal bowel sounds, non tender, soft Extremities: non-tender Dean Alonso MD Sep 14, 2019 07:30
--- NOTE | 2019-09-14 07:39 | NUR ---
HAND-OFF: Report given to VAN Rankin. Plan of care endorsed.
--- NOTE | 2019-09-14 07:53 | NUR ---
NURSE NOTES: Received report from VAN Kowalski. Patient in bed resting, no active s/s cardiac, respiratory distress noticed at this time. Patient on room air, AOx2, open eyes spontaneously, ST w/ HR 143, MD aware of ST. Endorsed patient was NPO, black tarry stool at night, MD made aware. IV on right FA 20G, asymptomatic, patent, intact, IV med running as prescribed rate. Bed in lowest position, side rails upx2, call light within reach. Will continue to monitor.
[2019-09-14 08:00] VITALS: BP 156/104
[2019-09-14 08:42] LABS: HEMOGLOBIN 11.5 G/DL (14.2-18.0); MEAN CORPUSCULAR VOLUME 98 FL (80-99); PLATELET COUNT 40 K/UL (150-450); RED BLOOD COUNT 3.47 M/UL (4.70-6.10); RED CELL DISTRIBUTION WIDTH 12.5 % (11.6-14.8); WHITE BLOOD COUNT 7.9 K/UL (4.8-10.8)
--- NOTE | 2019-09-14 08:42 | History and Physical ---
History of Present Illness General Date patient seen: Sep 14, 2019 Reason for Hospitalization: Gastrointestinal Bleed Present Illness HPI Information obtained via chart review as patient very poor historian due to etoh withdrawal. 53-year-old male who was brought in by EMS with vomiting from home. unclear if there was blood in his vomit or not. Per EMS patient drank alcohol. patient drinks alcohol daily. Per sister she told EMS that patient also had blood in his stool. Has had this problem in the past. Denies chest pain or shortness of breath. Denies abdominal pain. No other aggravating relieving factors. At the time of my evaluation patient is alert and oriented x1. Unable to provide additional history. agitated. PMH, PSH, social and family history unable to obtain due to mental status. per chart has a history of HTN, DM and liver issues Allergies: Coded Allergies: No Known Allergies (Verified , 04/13/11) Medication History Scheduled Chlordiazepoxide (Chlordiazepoxide HCl), 25 MG ORAL THREE TIMES A DAY No Known Medications* (NKM - No Known Medications*), 0 ., (Reported) Patient History Healthcare decision maker Resuscitation status Full Code Advanced Directive on File Review of Systems ROS Narrative unable to obtain due to mental status. Reported blood in stool at home per sister per chart review Physical Exam Physical Exam Narrative General Appearance: mild distress, intoxicated Head: normocephalic, atraumatic Eyes: bilateral eye normal inspection, bilateral eye PERRLA ENT: hearing grossly normal, normal pharynx, no angioedema, normal voice Neck: full range of motion, supple/symm/no masses Respiratory: chest non-tender, lungs clear, normal breath sounds, speaking full sentences Cardiovascular: no edema, tachycardia Gastrointestinal: normal bowel sounds, non tender, soft, non-distended, no guarding, no rebound Rectal: heme positive stool (per ED attending) deferred on my exam Musculoskeletal: back normal, gait/station normal, normal range of motion, non- tender Neurologic: alert and oriented x1, agitated, moves all extremities Psychiatric: intoxicated Skin: no rashes or ulcers Last 24 Hour Vital Signs Date Time Temp Pulse Resp B/P (MAP) Pulse Ox O2 Delivery O2 Flow Rate FiO2 09/14/19 08:00 97.9 147 18 156/104 (121) 96 09/14/19 04:00 97.9 143 20 150/99 (116) 96 09/14/19 03:38 150 09/14/19 00:00 98.2 136 20 136/76 (96) 94 09/13/19 23:31 141 09/13/19 22:34 Room Air 09/13/19 22:27 133 09/13/19 22:18 99.0 135 20 145/98 100 Room Air 09/13/19 22:15 97.7 125 19 123/78 (93) 93 09/13/19 18:33 99.5 127 18 134/97 100 Room Air 09/13/19 18:33 75 18 Room Air 09/13/19 17:38 98.8 78 19 137/84 (101) 99 Room Air Intake and Output 09/13/19 09/14/19 19:00 07:00 Intake Total 0 ml 1200 ml Balance 0 ml 1200 ml Intake Oral 0 ml IV Total 1200 ml # Voids 2 # Bowel Movements 1 Laboratory Tests Test 09/13/19 19:00 09/14/19 07:05 White Blood Count 8.6 K/UL (4.8-10.8) Pending Red Blood Count 4.13 M/UL (4.70-6.10) L Pending Hemoglobin 13.6 G/DL (14.2-18.0) L Pending Hematocrit 39.9 % (42.0-52.0) L Pending Mean Corpuscular Volume 97 FL (80-99) Pending Mean Corpuscular Hemoglobin 32.8 PG (27.0-31.0) H Pending Mean Corpuscular Hemoglobin Concent 33.9 G/DL (32.0-36.0) Pending Red Cell Distribution Width 12.0 % (11.6-14.8) Pending Platelet Count 61 K/UL (150-450) L Pending Mean Platelet Volume 7.9 FL (6.5-10.1) Pending Neutrophils (%) (Auto) % (45.0-75.0) Pending Lymphocytes (%) (Auto) % (20.0-45.0) Pending Monocytes (%) (Auto) % (1.0-10.0) Pending Eosinophils (%) (Auto) % (0.0-3.0) Pending Basophils (%) (Auto) % (0.0-2.0) Pending Differential Total Cells Counted 100 Neutrophils % (Manual) 58 % (45-75) Lymphocytes % (Manual) 39 % (20-45) Monocytes % (Manual) 2 % (1-10) Eosinophils % (Manual) 1 % (0-3) Basophils % (Manual) 0 % (0-2) Band Neutrophils 0 % (0-8) Platelet Estimate Decreased L Platelet Morphology Normal Red Blood Cell Morphology Normal Prothrombin Time 12.0 SEC (9.30-11.50) H Prothromb Time International Ratio 1.1 (0.9-1.1) Activated Partial Thromboplast Time 25 SEC (23-33) Sodium Level 143 MMOL/L (136-145) Pending Potassium Level 3.8 MMOL/L (3.5-5.1) Pending Chloride Level 102 MMOL/L (98-107) Pending Carbon Dioxide Level 24 MMOL/L (21-32) Pending Anion Gap 17 mmol/L (5-15) H Blood Urea Nitrogen 23 mg/dL (7-18) H Pending Creatinine 1.1 MG/DL (0.55-1.30) Pending Estimat Glomerular Filtration Rate > 60 mL/min (>60) Pending Glucose Level 119 MG/DL (74-106) H Pending Calcium Level 8.8 MG/DL (8.5-10.1) Pending Total Bilirubin 0.8 MG/DL (0.2-1.0) Aspartate Amino Transf (AST/SGOT) 158 U/L (15-37) H Alanine Aminotransferase (ALT/SGPT) 114 U/L (12-78) H Alkaline Phosphatase 84 U/L (46-116) Total Protein 8.0 G/DL (6.4-8.2) Albumin 3.8 G/DL (3.4-5.0) Globulin 4.2 g/dL Albumin/Globulin Ratio 0.9 (1.0-2.7) L Lipase 125 U/L (73-393) Serum Alcohol 385 mg/dL Height (Feet): 5 Height (Inches): 7.00 Weight (Pounds): 165 Medications Current Medications Medications (Trade) Dose Ordered Sig/Caron Route PRN Reason Start Time Stop Time Status Last Admin Dose Admin Chlordiazepoxide (Librium) 25 mg TID ORAL 09/14/19 09:00 09/21/19 08:59 Dextrose (Dextrose 50%) 25 ml Q30M PRN IV Hypoglycemia 09/13/19 20:30 10/13/19 20:29 Dextrose (Dextrose 50%) 50 ml Q30M PRN IV Hypoglycemia 09/13/19 20:30 10/13/19 20:29 Diphenhydramine HCl (Benadryl) 25 mg Q6H PRN ORAL Itching/Pruritis 09/13/19 20:30 10/13/19 20:29 Folic Acid 1 mg/ Multivitamins 10 ml/Thiamine HCl 100 mg/Sodium Chloride 1,011.2 ml @ 100 mls/ hr Q10H7M ONCE IV 09/14/19 00:00 09/14/19 10:06 09/14/19 00:20 Lorazepam (Ativan 2mg/ml 1ml) 0.5 mg Q4H PRN IV For Anxiety 09/13/19 20:30 09/20/19 20:29 Ondansetron HCl (Zofran) 4 mg Q6H PRN IVP Nausea & Vomiting 09/13/19 20:30 10/13/19 20:29 Pantoprazole (Protonix) 40 mg BID IV 09/13/19 20:30 10/13/19 20:29 09/13/19 22:03 Thiamine HCl (Vitamin B1) 100 mg DAILY ORAL 09/14/19 09:00 10/14/19 08:59 Objective Narrative ecg strip personally reviewed by me: Sinus tachycardia abdominal US: Fatty liver, no gallstones or cbd dilation Assessment/Plan Problem List: (1) Alcoholic hepatitis ICD Codes: K70.10 - Alcoholic hepatitis without ascites SNOMED: 859132054 (2) Intractable hiccups ICD Codes: R06.6 - Hiccough SNOMED: 40018304 (3) Vomiting ICD Codes: R11.10 - Vomiting, unspecified SNOMED: 531623511 (4) alcohol intoxication (5) Alcohol withdrawal ICD Codes: F10.239 - Alcohol dependence with withdrawal, unspecified SNOMED: 831522370 Qualifiers: Qualified Codes: F10.230 - Alcohol dependence with withdrawal, uncomplicated (6) Thrombocytopenia ICD Codes: D69.6 - Thrombocytopenia, unspecified SNOMED: 641036510 (7) GIB (gastrointestinal bleeding) ICD Codes: K92.2 - Gastrointestinal hemorrhage, unspecified SNOMED: 07655390 Status: stable Assessment/Plan: 53 year old male with GIB (upper vs lower), more likely upper from etoh abuse, fatty liver vs cirrhosis and ETOH withdrawal, etoh hepatitis. No evidence of pancreatitis #Etoh intoxication and withdrawal Admit to telemetry CIWA protocol Ativan Librium #GIB GI consult with Dr. Alonso NPO Monitor H/H and coags PPI EGD/colonoscopy per GI # Fatty liver vs cirrhosis #Thrombocytopenia due to liver disease- monitor #Etoh hepatitis etoh abstinence, patient needs education once mental status improves VTE ppx: SCD boots GI ppx: PPI Disposition: Home I spent 70 minutes during this encounter. >50% spent on care coordination and counselling. I spent an additional 31 minutes in chart review. Case discussed with RN and consultant dietitian Time of this note may no refect time of encounter Josh Cervantes M.D. Sep 14, 2019 08:41
[2019-09-14 09:04] LABS: ANION GAP 15 mmol/L (5-15); BLOOD UREA NITROGEN 22 mg/dL (7-18); CALCIUM 8.2 MG/DL (8.5-10.1); CARBON DIOXIDE 23 MMOL/L (21-32); CHLORIDE 105 MMOL/L (98-107); POTASSIUM 3.7 MMOL/L (3.5-5.1); SODIUM 143 MMOL/L (136-145)
[2019-09-14] MEDS: Thiamine 100mg tab ORAL SCH (09:56)
[2019-09-14] MEDS: Pantoprazole Inj IV SCH ×2 (09:56→17:35)
[2019-09-14] MEDS: chlordiazePOXIDE 25mg Cap ORAL SCH ×3 (09:56→17:35)
--- NOTE | 2019-09-14 10:00 | NUR ---
*-* NO INSURANCE INFORMATION IN THE BAR UNABLE TO SEND CLINICALS OR REVIEWS *-*
--- NOTE | 2019-09-14 11:12 | Diagnostic Imaging Report ---
Indication: Abdominal pain Technique: Parson-scale and duplex images of the upper abdomen were obtained Comparison: 07/10/2014. Reference also made to CT scan of the abdomen and pelvis 07/19/2019 Findings: Gallbladder is unremarkable, without stones, wall thickening, nor pericholecystic fluid. Sonographic Gallagher's sign is negative. Common bile duct measures 3 mm in diameter. No intrahepatic biliary ductal dilatation. Liver demonstrates increased echogenicity, consistent with fatty change, also previously reported. No focal abnormality Portal vein and hepatic veins are patent. Pancreas is incompletely visualized due to overlying bowel gas, visualized portions are unremarkable. Spleen is unremarkable. Left kidney measures 10.4 cm in length. Right kidney measures 9.8 cm length. Both kidneys demonstrate normal echogenicity. There is no hydronephrosis. No focal abnormality. Right lower pole calculus demonstrated on recent CT scan is not evident sonographically . Abdominal aorta is partially obscured by bowel gas, visualized portions are non-aneurysmal . Impression: Negative for gallstones or dilated bile ducts Fatty liver, also previously reported Noted incomplete visualization of the pancreas and abdominal aorta
[2019-09-14 12:00] VITALS: BP 170/100
--- NOTE | 2019-09-14 13:43 | NUR ---
CASE MANAGEMENT: INITIAL REVIEW 53YR OLD MALE BIBA FROM HOME CC: GI BLEED SI: ETOH WITHDRAW, GI HEMORRHAGE 98.8 78 19 137/84 99% ON RA RBC 4.13; H/H 13.6/39.9; BUN 23; PT 12.0; S. ETOH 385 IS: IVF NS BOLUS X1 IV ZOFRAN X1 IV PEPCID X1 IV ATIVAN X1 : 2E TELE UNIT DCP: HOME WHEN MEDICALLY STABLE PLAN: US ABD TODAY EGD IN AM CT CASE MANAGEMENT: INITIAL REVIEW 09/14/19 SI: ETOH WITHDRAW, GI BLEED 97.9 147 18 156/104 96% ON RA RBC 3.47; H/H 11.5/34.0; BUN 22; IS: IV PROTONIX BID IV MG SULFATE X2 BAGS IV MVIT BOLUS X1 THIAMINE PO QD LIBRIUM PO TID : 2E TELE UNIT DCP: HOME WHEN MEDICALLY STABLE PLAN: US ABD TODAY EGD IN AM
[2019-09-14 16:00] VITALS: BP 153/111
--- NOTE | 2019-09-14 18:55 | NUR ---
NURSE NOTES: Left message on Dr. Banks's office regarding patient one time SVT with HR 150, now HR 140s. Per Dr. Morrissey metoprolol 12.5mg PO q6h prn for SBP >160, HR >120, no cardiology consult at this time. Order noted, entered, carried out. Will continue to monitor.
--- NOTE | 2019-09-14 19:24 | NUR ---
HAND-OFF: Report given to VAN Kowalski.
--- NOTE | 2019-09-14 19:46 | NUR ---
NURSE NOTES: Received pt and report from VAN Rankin. Observed pt resting in bed with both eyes open with WASHER AND CAPPER MACHINE OPERATOR at bedside taking VS. laboratory monitor is in placed, IV site intact, asymptomatic, and patent. Bed is in the lowest position and locked. Call light within reach. No signs/symptoms of acute distress noted at this time. Will continue plan of care.
[2019-09-14 20:00] VITALS: BP 145/100
[2019-09-15] VITALS: BP 148/100
[2019-09-15 04:00] VITALS: BP 140/104
[2019-09-15 07:22] LABS: INR 1.1 (0.9-1.1)
[2019-09-15 07:39] LABS: HEMATOCRIT 30.9 % (42.0-52.0); HEMOGLOBIN 10.5 G/DL (14.2-18.0); MEAN CORPUSCULAR VOLUME 97 FL (80-99); PLATELET COUNT 30 K/UL (150-450); RED BLOOD COUNT 3.19 M/UL (4.70-6.10); RED CELL DISTRIBUTION WIDTH 11.9 % (11.6-14.8); WHITE BLOOD COUNT 4.9 K/UL (4.8-10.8)
[2019-09-15 07:55] LABS: AMMONIA 52 umol/L (11-32)
[2019-09-15 07:58] LABS: ALANINE AMINOTRANSFERASE 79 U/L (12-78); ALBUMIN 3.6 G/DL (3.4-5.0); ALBUMIN/GLOBULIN RATIO 0.9 (1.0-2.7); ALKALINE PHOSPHATASE 64 U/L (46-116); ANION GAP 15 mmol/L (5-15); ASPARTATE AMINO TRANSFERASE 104 U/L (15-37); BILIRUBIN,TOTAL 1.8 MG/DL (0.2-1.0); BLOOD UREA NITROGEN 19 mg/dL (7-18); CALCIUM 9.1 MG/DL (8.5-10.1); CARBON DIOXIDE 28 MMOL/L (21-32); CHLORIDE 96 MMOL/L (98-107); CREATININE 0.8 MG/DL (0.55-1.30); POTASSIUM 3.2 MMOL/L (3.5-5.1); SODIUM 138 MMOL/L (136-145)
[2019-09-15 08:00] VITALS: BP 127/90
[2019-09-15 08:01] LABS: BILIRUBIN,DIRECT 0.6 MG/DL (0.0-0.3)
--- NOTE | 2019-09-15 08:18 | NUR ---
NURSE NOTES: pt in bed resting. Pt on ic designer standard cells no signs of cardiac or respiratory distress at this moment. call light is within reach. Bed in lowest position and lock. Pt is NPO awaiting EGD today. Will continue to monitor pt and follow plans of care.
--- NOTE | 2019-09-15 08:58 | General Progress Note ---
Assessment/Plan Problem List: (1) Alcoholic hepatitis ICD Codes: K70.10 - Alcoholic hepatitis without ascites SNOMED: 724207903 (2) Intractable hiccups ICD Codes: R06.6 - Hiccough SNOMED: 69420557 (3) Vomiting ICD Codes: R11.10 - Vomiting, unspecified SNOMED: 932727447 (4) alcohol intoxication (5) Alcohol withdrawal ICD Codes: F10.239 - Alcohol dependence with withdrawal, unspecified SNOMED: 894727409 Qualifiers: Qualified Codes: F10.230 - Alcohol dependence with withdrawal, uncomplicated (6) Thrombocytopenia ICD Codes: D69.6 - Thrombocytopenia, unspecified SNOMED: 700411750 (7) GIB (gastrointestinal bleeding) ICD Codes: K92.2 - Gastrointestinal hemorrhage, unspecified SNOMED: 67827292 Status: stable Assessment/Plan: 53 year old male with GIB (upper vs lower), more likely upper from etoh abuse, fatty liver vs cirrhosis and ETOH withdrawal, etoh hepatitis. No evidence of pancreatitis #Etoh intoxication and withdrawal [facility] with Dr. Alonso NPO--> can advance diwet since no evidence of bleeding and EGD on hold for now Monitor H/H and coags- stable PPI EGD/colonoscopy per GI- cancelled due to thrombocytopenia. # Fatty liver vs cirrhosis #Thrombocytopenia due to liver disease- monitor #Etoh hepatitis etoh abstinence, patient needs education once mental status improves elevated ammnia- Start lactulose 10 TID #persistent hiccups -Thorazine prn VTE ppx: SCD boots GI ppx: PPI Disposition: Home I spent 40 minutes during this encounter. >50% spent on care coordination and counselling. Case discussed with RN and bridal stylist sales consultant Time of this note may no refect time of encounter Subjective Date patient seen: Sep 15, 2019 ROS Limited/Unobtainable: Yes Allergies: Coded Allergies: No Known Allergies (Verified , 04/13/11) Subjective seems less agitated, offers no complaints today. EGD cancelled per GI due to concern for thrombocytopenia worsening. continues to have hiccups Objective Last 24 Hour Vital Signs Date Time Temp Pulse Resp B/P (MAP) Pulse Ox O2 Delivery O2 Flow Rate FiO2 09/15/19 04:00 127 09/15/19 04:00 99.1 120 19 140/104 (116) 97 09/15/19 00:00 99.3 130 20 148/100 (116) 97 09/15/19 00:00 129 09/14/19 21:00 Room Air 09/14/19 20:00 154 09/14/19 20:00 99.8 145 19 145/100 (115) 96 09/14/19 16:00 150 09/14/19 16:00 97.9 146 18 153/111 (125) 96 09/14/19 12:00 144 09/14/19 12:00 98.3 149 20 170/100 (123) 95 09/14/19 09:00 Room Air Intake and Output 09/14/19 09/15/19 19:00 07:00 Output Total 450 ml Balance -450 ml Output Urine Total 450 ml # Voids 1 2 # Bowel Movements 2 3 Laboratory Tests 09/14/19 17:00: Stool Occult Blood [Pending] 09/15/19 06:17: White Blood Count 4.9, Red Blood Count 3.19L, Hemoglobin 10.5L, Hematocrit 30.9L , Mean Corpuscular Volume 97, Mean Corpuscular Hemoglobin 33.0H, Mean Corpuscular Hemoglobin Concent 34.0, Red Cell Distribution Width 11.9, Platelet Count 30L, Mean Platelet Volume 7.8, Neutrophils (%) (Auto) , Lymphocytes (%) ( Auto) , Monocytes (%) (Auto) , Eosinophils (%) (Auto) , Basophils (%) (Auto) , Neutrophils % (Manual) [Pending], Lymphocytes % (Manual) [Pending], Platelet Estimate [Pending], Platelet Morphology [Pending], Prothrombin Time 12.1H, Prothromb Time International Ratio 1.1, Sodium Level 138, Potassium Level 3.2L, Chloride Level 96L, Carbon Dioxide Level 28, Anion Gap 15, Blood Urea Nitrogen 19H, Creatinine 0.8, Estimat Glomerular Filtration Rate > 60, Glucose Level 89, Calcium Level 9.1, Total Bilirubin 1.8H, Direct Bilirubin 0.6H, Aspartate Amino Transf (AST/SGOT) 104H, Alanine Aminotransferase (ALT/SGPT) 79H, Alkaline Phosphatase 64, Ammonia 52H, Total Protein 7.5, Albumin 3.6, Globulin 3.9, Albumin/Globulin Ratio 0.9L Height (Feet): 5 Height (Inches): 7.00 Weight (Pounds): 100 Objective General Appearance: more alert, less agitated Head: normocephalic, atraumatic Eyes: bilateral eye normal inspection, bilateral eye PERRLA ENT: hearing grossly normal, normal pharynx, no angioedema, normal voice Neck: full range of motion, supple/symm/no masses Respiratory: chest non-tender, lungs clear, normal breath sounds, speaking full sentences Cardiovascular: no edema, tachycardia Gastrointestinal: normal bowel sounds, non tender, soft, non-distended, no guarding, no rebound Rectal: heme positive stool (per ED attending) deferred on my exam Musculoskeletal: back normal, gait/station normal, normal range of motion, non- tender Neurologic: alert and oriented x2, less agitated, moves all extremities Psychiatric: calm Skin: no rashes or ulcers Josh Cervantes M.D. Sep 15, 2019 08:58
[2019-09-15] MEDS: Thiamine 100mg tab ORAL SCH (09:09)
[2019-09-15] MEDS: Pantoprazole Inj IV SCH ×2 (09:09→18:06)
[2019-09-15] MEDS: chlordiazePOXIDE 25mg Cap ORAL SCH ×3 (09:09→18:06)
--- NOTE | 2019-09-15 09:49 | NUR ---
*-* INSURANCE*-* ALL CLINICALS AND REVIEWS HAVE BEEN FAXED TO: [facility] Ref#[id number] CM: Garret ext [phone]
[2019-09-15] MEDS ORDERED: chlorproMAZINE 25mg tab ORAL PRN (10:00)
--- NOTE | 2019-09-15 10:36 | NUR ---
NURSE NOTES: pt is getting a procedure, pt was picked up earlier and will get meds once he is back to unit. Addendum: 09/15/19 at 1040 by Muriel Garrido RN note for wrong pt.
--- NOTE | 2019-09-15 10:40 | NUR ---
NURSE NOTES: procedure cancelled Dr. Cervantes is aware. ordered potassium 60meq PO once.
--- NOTE | 2019-09-15 11:31 | NUR ---
NURSE NOTES: Per DoctMckayla Cervantes pt can start regular diet and no IV hydration is ok.
--- NOTE | 2019-09-15 11:31 | NUR ---
NURSE NOTES: per Doctor Srhuti and Billy pt can eat but will be NPO at midnight for EGD tomorrow.
--- NOTE | 2019-09-15 11:32 | General Progress Note ---
Assessment/Plan Problem List: (1) Cirrhosis ICD Codes: K74.60 - Unspecified cirrhosis of liver SNOMED: 95318275 (2) Alcohol withdrawal ICD Codes: F10.239 - Alcohol dependence with withdrawal, unspecified SNOMED: 684922769 Qualifiers: Qualified Codes: F10.230 - Alcohol dependence with withdrawal, uncomplicated (3) Thrombocytopenia ICD Codes: D69.6 - Thrombocytopenia, unspecified SNOMED: 151824069 (4) GIB (gastrointestinal bleeding) ICD Codes: K92.2 - Gastrointestinal hemorrhage, unspecified SNOMED: 88994042 Status: stable Assessment/Plan: abd us>>> fatty live ammonia level>> mildly elevated>> start low dose lactulose ppi banana bag EGD canceled by anesthesia due to tachycardia>>will plan for tomorrow if stable Subjective ROS Limited/Unobtainable: Yes Allergies: Coded Allergies: No Known Allergies (Verified , 04/13/11) Objective Last 24 Hour Vital Signs Date Time Temp Pulse Resp B/P (MAP) Pulse Ox O2 Delivery O2 Flow Rate FiO2 09/15/19 08:00 99.5 127 20 127/90 (102) 98 09/15/19 04:00 127 09/15/19 04:00 99.1 120 19 140/104 (116) 97 09/15/19 00:00 99.3 130 20 148/100 (116) 97 09/15/19 00:00 129 09/14/19 21:00 Room Air 09/14/19 20:00 154 09/14/19 20:00 99.8 145 19 145/100 (115) 96 09/14/19 16:00 150 09/14/19 16:00 97.9 146 18 153/111 (125) 96 09/14/19 12:00 144 09/14/19 12:00 98.3 149 20 170/100 (123) 95 Intake and Output 09/14/19 09/15/19 19:00 07:00 Output Total 450 ml Balance -450 ml Output Urine Total 450 ml # Voids 1 2 # Bowel Movements 2 3 Laboratory Tests 09/14/19 17:00: Stool Occult Blood [Pending] 09/15/19 06:17: White Blood Count 4.9, Red Blood Count 3.19L, Hemoglobin 10.5L, Hematocrit 30.9L , Mean Corpuscular Volume 97, Mean Corpuscular Hemoglobin 33.0H, Mean Corpuscular Hemoglobin Concent 34.0, Red Cell Distribution Width 11.9, Platelet Count 30L, Mean Platelet Volume 7.8, Neutrophils (%) (Auto) , Lymphocytes (%) ( Auto) , Monocytes (%) (Auto) , Eosinophils (%) (Auto) , Basophils (%) (Auto) , Differential Total Cells Counted 100, Neutrophils % (Manual) 52, Lymphocytes % ( Manual) 39, Monocytes % (Manual) 6, Eosinophils % (Manual) 1, Basophils % ( Manual) 2, Band Neutrophils 0, Platelet Estimate DecreasedL, Platelet Morphology Normal, Prothrombin Time 12.1H, Prothromb Time International Ratio 1.1, Sodium Level 138, Potassium Level 3.2L, Chloride Level 96L, Carbon Dioxide Level 28, Anion Gap 15, Blood Urea Nitrogen 19H, Creatinine 0.8, Estimat Glomerular Filtration Rate > 60, Glucose Level 89, Calcium Level 9.1, Total Bilirubin 1.8H, Direct Bilirubin 0.6H, Aspartate Amino Transf (AST/SGOT) 104H, Alanine Aminotransferase (ALT/SGPT) 79H, Alkaline Phosphatase 64, Ammonia 52H, Total Protein 7.5, Albumin 3.6, Globulin 3.9, Albumin/Globulin Ratio 0.9L Height (Feet): 5 Height (Inches): 7.00 Weight (Pounds): 100 General Appearance: alert EENT: normal ENT inspection Neck: supple Cardiovascular: tachycardia Respiratory/Chest: decreased breath sounds Abdomen: normal bowel sounds, non tender, soft Extremities: non-tender Dean Alonso MD Sep 15, 2019 11:32
[2019-09-15 12:00] VITALS: BP 148/104
[2019-09-15] MEDS ORDERED: Lactulose 10gm/15ml UDC ORAL SCH (13:00)
[2019-09-15] MEDS: Lactulose 10gm/15ml UDC ORAL SCH ×2 (14:22→18:06)
--- NOTE | 2019-09-15 14:39 | NUR ---
CASE MANAGEMENT: REVIEW 09/15/19 SI: ETOH WITHDRAW, GI BLEED 99.5 127 20 127/90 96% ON RA K+ 3.2; RBC 3.19; H/H 10.5/30.9; PT 12.1; STOOL OB (+) IS: K-DUR PO X1 IV PROTONIX BID THIAMINE PO QD LIBRIUM PO TID LACTULOSE PO TID THORAZINE PO Q6/PRN : 2E TELE UNIT DCP: HOME WHEN MEDICALLY STABLE PLAN: EGD IN AM PLAN: US ABD TODAY EGD IN AM
[2019-09-15 16:00] VITALS: BP 147/98
--- NOTE | 2019-09-15 19:30 | NUR ---
NURSE NOTES: Receivedre Addendum: 09/15/19 at 1947 by Janet Foster RN NURSE NOTES: Received report from VAN Llamas. Patient is in bed, awake and responsive. Breathing regular with no distress noted at this time. Patient's bed is in lowest position, breaks engaged, and call light is within reach. Patient denies any pain or discomfort at this time. Will continue to monitor.
[2019-09-15 20:00] VITALS: BP 136/94
--- NOTE | 2019-09-15 20:13 | NUR ---
HAND-OFF: Report given to Alor/RN.
[2019-09-15] MEDS: Metoprolol Tartrate 12.5mg TAB ORAL PRN (20:28)
[2019-09-16] VITALS: BP 130/90
[2019-09-16 04:00] VITALS: BP 100/69
[2019-09-16 07:15] LABS: INR 1.1 (0.9-1.1)
--- NOTE | 2019-09-16 07:15 | NUR ---
NURSE NOTES: Report received from VAN Gonzales. Pt. AOx3. In RA. Denies any pain or SOB. Explained plan of care for today. Pt. NPO. IV flushed SL. Bed on lowest position, side rails upx2, brakes engaged. Call light left within easy reach.
--- NOTE | 2019-09-16 07:26 | NUR ---
HAND-OFF: Report given to VAN Haque. Patient in stable condition. Plan of care endorsed.
[2019-09-16 07:28] LABS: HEMATOCRIT 30.8 % (42.0-52.0); HEMOGLOBIN 10.5 G/DL (14.2-18.0); MEAN CORPUSCULAR VOLUME 97 FL (80-99); PLATELET COUNT 33 K/UL (150-450); RED BLOOD COUNT 3.18 M/UL (4.70-6.10); RED CELL DISTRIBUTION WIDTH 11.9 % (11.6-14.8); WHITE BLOOD COUNT 3.6 K/UL (4.8-10.8)
[2019-09-16 07:44] LABS: ALANINE AMINOTRANSFERASE 74 U/L (12-78); ALBUMIN 3.4 G/DL (3.4-5.0); ALBUMIN/GLOBULIN RATIO 0.9 (1.0-2.7); ALKALINE PHOSPHATASE 66 U/L (46-116); ANION GAP 13 mmol/L (5-15); ASPARTATE AMINO TRANSFERASE 101 U/L (15-37); BILIRUBIN,TOTAL 1.5 MG/DL (0.2-1.0); BLOOD UREA NITROGEN 16 mg/dL (7-18); CALCIUM 8.9 MG/DL (8.5-10.1); CARBON DIOXIDE 25 MMOL/L (21-32); CHLORIDE 98 MMOL/L (98-107); CREATININE 0.8 MG/DL (0.55-1.30); POTASSIUM 3.2 MMOL/L (3.5-5.1); SODIUM 136 MMOL/L (136-145)
[2019-09-16 07:46] LABS: BILIRUBIN,DIRECT 0.6 MG/DL (0.0-0.3)
[2019-09-16] MEDS: chlordiazePOXIDE 25mg Cap ORAL SCH ×3 (08:48→17:12)
[2019-09-16] MEDS: Pantoprazole Inj IV SCH ×2 (08:48→17:12)
[2019-09-16 09:00] VITALS: BP 123/90
--- NOTE | 2019-09-16 09:28 | NUR ---
CASE MANAGEMENT: REVIEW 09/16/19 SI: ETOH WITHDRAWAL. GIB 97.5 112 20 100/69 98% ON RA PLT 33 K-3.2 TBIL 1.5 DBIL 0.6 AST 101 IS: LACTULOSE PO TID LIBRIUM PO TID THIAMINE PO QD IV PROTONIX BID IV ATIVAN Q4/PRN :" 2E TELE UNIT PLAN: EGD CANCELLED 09/14/19 D/T LOW PLT EGD CANCELLED 09/15/19 BY ANESTHESIA DUE TO TACHYCARDIA PLAN IS FOR EGD TODAY PRN THORAZINE FOR HICCUPS
--- NOTE | 2019-09-16 09:51 | Anethesia Preoperative Eval ---
Anesthesia Pre-op PMH/ROS General Date of Evaluation: Sep 16, 2019 Anesthesiologist: Isaac ASA Score: ASA 3 Mallampati Score Class I : Soft palate, uvula, fauces, pillars visible Class II: Soft palate, uvula, fauces visible Class III: Soft palate, base of uvula visible Class IV: Only hard plate visible Mallampati Classification: Class III Surgeon: Celeste Diagnosis: cirrhosis Surgical Procedure: EGD Anesthesia History: none Family History: no anesthesia problems Allergies: Coded Allergies: No Known Allergies (Verified , 04/13/11) Medications: see eMAR Patient NPO?: Yes NPO Date: Sep 15, 2019 Past Medical History Cardiovascular: Reports: HTN; Denies: CAD, [place], valve dz, arrhythmia, other Pulmonary: Reports: asthma; Denies: COPD, [place], other Gastrointestinal/Genitourinary: Reports: other - cirrhosis; Denies: GERD, CRI, ESRD Neurologic/Psychiatric: Denies: dementia, CVA, depression/anxiety, TIA, other Endocrine: Reports: DM; Denies: hypothyroidism, steroids, other HEENT: Denies: cataract (L), cataract (R), glaucoma, [place] (L), [place] (R), other Hematology/Immune: Denies: anemia, DVT, bleeding disorder, other Musculoskeletal/Integumentary: Denies: OA, RA, DJD, DDD, edema, other Anesthesia Pre-op Phys. Exam Physician Exam Last Vital Signs Date Time Temp Pulse Resp B/P (MAP) Pulse Ox O2 Delivery O2 Flow Rate FiO2 09/16/19 08:00 109 09/16/19 04:00 97.5 20 100/69 (79) 98 09/15/19 21:00 Room Air Constitutional: NAD Cardiovascular: RRR Respiratory: CTA Airway Exam Mallampati Score: Class III MO: limited ROM: limited Anesthesia Pre-op A/P Labs Hematology Test 09/16/19 06:07 White Blood Count 3.6 K/UL (4.8-10.8) L Red Blood Count 3.18 M/UL (4.70-6.10) L Hemoglobin 10.5 G/DL (14.2-18.0) L Hematocrit 30.8 % (42.0-52.0) L Mean Corpuscular Volume 97 FL (80-99) Mean Corpuscular Hemoglobin 33.1 PG (27.0-31.0) H Mean Corpuscular Hemoglobin Concent 34.2 G/DL (32.0-36.0) Red Cell Distribution Width 11.9 % (11.6-14.8) Platelet Count 33 K/UL (150-450) L Mean Platelet Volume 10.4 FL (6.5-10.1) H Neutrophils (%) (Auto) % (45.0-75.0) Lymphocytes (%) (Auto) % (20.0-45.0) Monocytes (%) (Auto) % (1.0-10.0) Eosinophils (%) (Auto) % (0.0-3.0) Basophils (%) (Auto) % (0.0-2.0) Neutrophils % (Manual) Pending Lymphocytes % (Manual) Pending Platelet Estimate Pending Platelet Morphology Pending Coagulation Test 09/16/19 06:07 Prothrombin Time 11.9 SEC (9.30-11.50) H Prothromb Time International Ratio 1.1 (0.9-1.1) Activated Partial Thromboplast Time 25 SEC (23-33) Chemistry Test 09/16/19 06:07 Sodium Level 136 MMOL/L (136-145) Potassium Level 3.2 MMOL/L (3.5-5.1) L Chloride Level 98 MMOL/L (98-107) Carbon Dioxide Level 25 MMOL/L (21-32) Anion Gap 13 mmol/L (5-15) Blood Urea Nitrogen 16 mg/dL (7-18) Creatinine 0.8 MG/DL (0.55-1.30) Estimat Glomerular Filtration Rate > 60 mL/min (>60) Glucose Level 89 MG/DL (74-106) Calcium Level 8.9 MG/DL (8.5-10.1) Total Bilirubin 1.5 MG/DL (0.2-1.0) H Direct Bilirubin 0.6 MG/DL (0.0-0.3) H Aspartate Amino Transf (AST/SGOT) 101 U/L (15-37) H Alanine Aminotransferase (ALT/SGPT) 74 U/L (12-78) Alkaline Phosphatase 66 U/L (46-116) Total Protein 7.2 G/DL (6.4-8.2) Albumin 3.4 G/DL (3.4-5.0) Globulin 3.8 g/dL Albumin/Globulin Ratio 0.9 (1.0-2.7) L Studies Pre-op Studies: EKG - sr Risk Assessment & Plan Assessment: ASA III Plan: MAC Status Change Before Surgery: No - Case cancelled by dr. Alonso Pre-Antibiotics Drug: N/A Nisha Bronson MD Sep 16, 2019 09:51
[2019-09-16] MEDS ORDERED: LR 1000ml 1,000 ML IVLG SCH (09:56)
[2019-09-16] MEDS ORDERED: DiphenhydrAMINE 50mg/ml Inj IVP PRN (10:00)
--- NOTE | 2019-09-16 10:20 | General Progress Note ---
Assessment/Plan Problem List: (1) Alcoholic hepatitis ICD Codes: K70.10 - Alcoholic hepatitis without ascites SNOMED: 747471838 (2) Intractable hiccups ICD Codes: R06.6 - Hiccough SNOMED: 34445345 (3) Vomiting ICD Codes: R11.10 - Vomiting, unspecified SNOMED: 654339329 (4) alcohol intoxication (5) Alcohol withdrawal ICD Codes: F10.239 - Alcohol dependence with withdrawal, unspecified SNOMED: 473258377 Qualifiers: Qualified Codes: F10.230 - Alcohol dependence with withdrawal, uncomplicated (6) Thrombocytopenia ICD Codes: D69.6 - Thrombocytopenia, unspecified SNOMED: 220134427 (7) GIB (gastrointestinal bleeding) ICD Codes: K92.2 - Gastrointestinal hemorrhage, unspecified SNOMED: 63100299 Status: stable Assessment/Plan: 53 year old male with GIB (upper vs lower), more likely upper from etoh abuse, fatty liver vs cirrhosis and ETOH withdrawal, etoh hepatitis. No evidence of pancreatitis #Etoh intoxication and withdrawal [facility] with Dr. Alonso NPO--> can advance diwet since no evidence of bleeding and EGD on hold for now Monitor H/H and coags- stable PPI EGD/colonoscopy per GI- cancelled due to tachycardia- Serial H/H stable. To follow up outpatient # Fatty liver vs cirrhosis #Thrombocytopenia due to liver disease- monitor #Etoh hepatitis etoh abstinence, patient counselled reg abstinence from etoh and danger of . elevated ammonia- Start lactulose 10 TID #persistent hiccups- much improved -Thorazine prn VTE ppx: SCD boots GI ppx: PPI Disposition: Home, 09/17 I spent 40 minutes during this encounter. >50% spent on care coordination and counselling. Case discussed with RN and provider contracting consultant Time of this note may no refect time of encounter Subjective Date patient seen: Sep 16, 2019 ROS Limited/Unobtainable: No Constitutional: Denies: no symptoms, chills, diaphoresis, fever, malaise, weakness, other HEENT: Denies: no symptoms, eye pain, blurred vision, tearing, double vision, ear pain, ear discharge, nose pain, nose congestion, throat pain, throat swelling, mouth pain, mouth swelling, other Cardiovascular: Denies: no symptoms, chest pain, edema, irregular heart rate, lightheadedness, palpitations, syncope, other Respiratory: Denies: no symptoms, cough, orthopnea, shortness of breath, SOB with excertion, SOB at rest, sputum, stridor, wheezing, other Gastrointestinal/Abdominal: Denies: no symptoms, abdomen distended, abdominal pain, black stools, tarry stools, blood in stool, constipated, diarrhea, difficulty swallowing, nausea, poor appetite, poor fluid intake, rectal bleeding , vomiting, other Genitourinary: Denies: no symptoms, burning, discharge, frequency, flank pain, hematuria, incontinence, pain, urgency, other Neurologic/Psychiatric: Denies: no symptoms, anxiety, depressed, emotional problems, headache, numbness, paresthesia, pre-existing deficit, seizure, tingling, tremors, weakness, other Endocrine: Denies: no symptoms, excessive sweating, flushing, intolerance to cold, intolerance to heat, increased hunger, increased thirst, increased urine, unexplained weight gain, unexplained weight loss, other Hematologic/Lymphatic: Denies: no symptoms, anemia, easy bleeding, easy bruising, other Allergies: Coded Allergies: No Known Allergies (Verified , 04/13/11) Subjective Mental status much better today EGD cancelled by anesthesia yesterday due to tachycardia hiccups are improved tachycardia better. Sinus tach H/H stable Started on lactulose for elevated ammonia Objective Last 24 Hour Vital Signs Date Time Temp Pulse Resp B/P (MAP) Pulse Ox O2 Delivery O2 Flow Rate FiO2 09/16/19 08:00 109 09/16/19 04:00 97.5 112 20 100/69 (79) 98 09/16/19 04:00 114 09/16/19 00:00 98.1 102 18 130/90 (103) 96 09/16/19 00:00 101 09/15/19 21:00 Room Air 09/15/19 20:28 122 136/94 09/15/19 20:00 116 09/15/19 20:00 98.6 122 19 136/94 (108) 93 09/15/19 16:00 98.3 139 20 147/98 (114) 96 09/15/19 16:00 141 09/15/19 12:00 128 09/15/19 12:00 98.3 120 18 148/104 (119) 97 Intake and Output 09/15/19 09/16/19 18:59 06:59 Intake Total 120 ml Balance 120 ml Intake Oral 120 ml # Voids 3 2 # Bowel Movements 3 2 Laboratory Tests 09/16/19 06:07: White Blood Count 3.6L, Red Blood Count 3.18L, Hemoglobin 10.5L, Hematocrit 30.8L, Mean Corpuscular Volume 97, Mean Corpuscular Hemoglobin 33.1H, Mean Corpuscular Hemoglobin Concent 34.2, Red Cell Distribution Width 11.9, Platelet Count 33L, Mean Platelet Volume 10.4H, Neutrophils (%) (Auto) , Lymphocytes (%) (Auto) , Monocytes (%) (Auto) , Eosinophils (%) (Auto) , Basophils (%) (Auto) , Neutrophils % (Manual) [Pending], Lymphocytes % (Manual) [Pending], Platelet Estimate [Pending], Platelet Morphology [Pending], Prothrombin Time 11.9H, Prothromb Time International Ratio 1.1, Activated Partial Thromboplast Time 25, Sodium Level 136, Potassium Level 3.2L, Chloride Level 98, Carbon Dioxide Level 25, Anion Gap 13, Blood Urea Nitrogen 16, Creatinine 0.8, Estimat Glomerular Filtration Rate > 60, Glucose Level 89, Calcium Level 8.9, Total Bilirubin 1.5H , Direct Bilirubin 0.6H, Aspartate Amino Transf (AST/SGOT) 101H, Alanine Aminotransferase (ALT/SGPT) 74, Alkaline Phosphatase 66, Total Protein 7.2, Albumin 3.4, Globulin 3.8, Albumin/Globulin Ratio 0.9L Height (Feet): 5 Height (Inches): 7.00 Weight (Pounds): 100 Objective General Appearance: more alert, calm, cooperative Head: normocephalic, atraumatic Eyes: bilateral eye normal inspection, bilateral eye PERRLA ENT: hearing grossly normal, normal pharynx, no angioedema, normal voice Neck: full range of motion, supple/symm/no masses Respiratory: chest non-tender, lungs clear, normal breath sounds, speaking full sentences Cardiovascular: no edema, tachycardia Gastrointestinal: normal bowel sounds, non tender, soft, non-distended, no guarding, no rebound Rectal: heme positive stool (per ED attending) deferred on my exam Musculoskeletal: back normal, gait/station normal, normal range of motion, non- tender Neurologic: alert and oriented x2, less agitated, moves all extremities Psychiatric: calm Skin: no rashes or ulcers Josh Cervantes M.D. Sep 16, 2019 10:20
--- NOTE | 2019-09-16 10:55 | Pre-Procedure Note/Attestation ---
Pre-Procedure Note/Attestation Complete Prior to Procedure Planned Procedure: not applicable Procedure Narrative: egd Indications for Procedure Pre-Operative Diagnosis: gib Attestation I attest that I discussed the nature of the procedure; its benefits; risks and complications; and alternatives (and the risks and benefits of such alternatives ), prior to the procedure, with the patient (or the patient's legal business banking representative). I attest that, if there was a reasonable possibility of needing a blood transfusion, the patient (or the patient's legal business banking representative) was given the [facility] standardized written summary, pursuant to the [employer] Blood Safety Act ([place] Health and Safety Code # 1645, as amended). I attest that I re-evaluated the patient just prior to the surgery and that there has been no change in the patient's H&P, except as documented below: Dean Alonso MD Sep 16, 2019 10:55
--- NOTE | 2019-09-16 11:07 | General Progress Note ---
Assessment/Plan Problem List: (1) Cirrhosis ICD Codes: K74.60 - Unspecified cirrhosis of liver SNOMED: 59274387 (2) Alcohol withdrawal ICD Codes: F10.239 - Alcohol dependence with withdrawal, unspecified SNOMED: 777175725 Qualifiers: Qualified Codes: F10.230 - Alcohol dependence with withdrawal, uncomplicated (3) Thrombocytopenia ICD Codes: D69.6 - Thrombocytopenia, unspecified SNOMED: 723027927 (4) GIB (gastrointestinal bleeding) ICD Codes: K92.2 - Gastrointestinal hemorrhage, unspecified SNOMED: 48021003 Status: stable Assessment/Plan: abd us>>> fatty live ammonia level>> mildly elevated>> low dose lactulose ppi banana bag EGD canceled by anesthesia due to tachycardia>>stable H&H>>> patient to fu as out patient Subjective ROS Limited/Unobtainable: Yes Allergies: Coded Allergies: No Known Allergies (Verified , 04/13/11) Objective Last 24 Hour Vital Signs Date Time Temp Pulse Resp B/P (MAP) Pulse Ox O2 Delivery O2 Flow Rate FiO2 09/16/19 08:00 109 09/16/19 04:00 97.5 112 20 100/69 (79) 98 09/16/19 04:00 114 09/16/19 00:00 98.1 102 18 130/90 (103) 96 09/16/19 00:00 101 09/15/19 21:00 Room Air 09/15/19 20:28 122 136/94 09/15/19 20:00 116 09/15/19 20:00 98.6 122 19 136/94 (108) 93 09/15/19 16:00 98.3 139 20 147/98 (114) 96 09/15/19 16:00 141 09/15/19 12:00 128 09/15/19 12:00 98.3 120 18 148/104 (119) 97 Intake and Output 09/15/19 09/16/19 18:59 06:59 Intake Total 120 ml Balance 120 ml Intake Oral 120 ml # Voids 3 2 # Bowel Movements 3 2 Laboratory Tests 09/16/19 06:07: White Blood Count 3.6L, Red Blood Count 3.18L, Hemoglobin 10.5L, Hematocrit 30.8L, Mean Corpuscular Volume 97, Mean Corpuscular Hemoglobin 33.1H, Mean Corpuscular Hemoglobin Concent 34.2, Red Cell Distribution Width 11.9, Platelet Count 33L, Mean Platelet Volume 10.4H, Neutrophils (%) (Auto) , Lymphocytes (%) (Auto) , Monocytes (%) (Auto) , Eosinophils (%) (Auto) , Basophils (%) (Auto) , Neutrophils % (Manual) [Pending], Lymphocytes % (Manual) [Pending], Platelet Estimate [Pending], Platelet Morphology [Pending], Prothrombin Time 11.9H, Prothromb Time International Ratio 1.1, Activated Partial Thromboplast Time 25, Sodium Level 136, Potassium Level 3.2L, Chloride Level 98, Carbon Dioxide Level 25, Anion Gap 13, Blood Urea Nitrogen 16, Creatinine 0.8, Estimat Glomerular Filtration Rate > 60, Glucose Level 89, Calcium Level 8.9, Total Bilirubin 1.5H , Direct Bilirubin 0.6H, Aspartate Amino Transf (AST/SGOT) 101H, Alanine Aminotransferase (ALT/SGPT) 74, Alkaline Phosphatase 66, Total Protein 7.2, Albumin 3.4, Globulin 3.8, Albumin/Globulin Ratio 0.9L Height (Feet): 5 Height (Inches): 7.00 Weight (Pounds): 100 General Appearance: alert EENT: normal ENT inspection Neck: supple Cardiovascular: tachycardia Respiratory/Chest: lungs clear Abdomen: normal bowel sounds, non tender, soft Extremities: non-tender Dean Alonso MD Sep 16, 2019 11:07
[2019-09-16] MEDS: Lactulose 10gm/15ml UDC ORAL SCH ×3 (11:28→17:12)
[2019-09-16] MEDS: Thiamine 100mg tab ORAL SCH (11:29)
[2019-09-16 12:00] VITALS: BP 127/88
[2019-09-16 16:00] VITALS: BP 134/95
[2019-09-16] MEDS: Metoprolol Tartrate 12.5mg TAB ORAL PRN (19:09)
--- NOTE | 2019-09-16 19:30 | NUR ---
NURSE NOTES: Received report from VAN Haque. Patient is in bed, awake and responsive. Breathing regular and unlabored with no distress noted at this time. Patient denies any pain or discomfort at this time. IV is intact and saline locked. Patient's bed is in lowest position, breaks engaged, call light within reach at all times. Will continue to monitor.
--- NOTE | 2019-09-16 19:40 | NUR ---
HAND-OFF: Report given to VAN Acevedo. Pt. in stable condition. Family at bedside. Concern communicated.
[2019-09-16 20:00] VITALS: BP 118/80
[2019-09-17] VITALS: BP 123/82
[2019-09-17 04:00] VITALS: BP 121/84
[2019-09-17 06:49] LABS: HEMATOCRIT 30.1 % (42.0-52.0); HEMOGLOBIN 10.2 G/DL (14.2-18.0); MEAN CORPUSCULAR VOLUME 98 FL (80-99); PLATELET COUNT 61 K/UL (150-450); RED BLOOD COUNT 3.08 M/UL (4.70-6.10); WHITE BLOOD COUNT 3.8 K/UL (4.8-10.8)
[2019-09-17 07:21] LABS: ALANINE AMINOTRANSFERASE 91 U/L (12-78); ALBUMIN 3.2 G/DL (3.4-5.0); ALBUMIN/GLOBULIN RATIO 0.9 (1.0-2.7); ALKALINE PHOSPHATASE 114 U/L (46-116); ANION GAP 13 mmol/L (5-15); ASPARTATE AMINO TRANSFERASE 108 U/L (15-37); BILIRUBIN,TOTAL 0.9 MG/DL (0.2-1.0); BLOOD UREA NITROGEN 12 mg/dL (7-18); CALCIUM 8.9 MG/DL (8.5-10.1); CARBON DIOXIDE 25 MMOL/L (21-32); CHLORIDE 101 MMOL/L (98-107); CREATININE 0.8 MG/DL (0.55-1.30); POTASSIUM 3.3 MMOL/L (3.5-5.1); SODIUM 138 MMOL/L (136-145)
--- NOTE | 2019-09-17 07:30 | NUR ---
NURSE NOTES: Received report from Chinmay RN. The patient is resting on the bed without acute distress or shortness of breath. The patient's bed in the lowest position, call light in reach, and fall and aspiration precaution reinforced. IV site intact and patent. Will continue plan of care.
--- NOTE | 2019-09-17 07:33 | NUR ---
HAND-OFF: Report given to VAN Bundy. Patient is in stable condition. Plan of care endorsed.
[2019-09-17 08:00] VITALS: BP 132/98
--- NOTE | 2019-09-17 08:03 | Discharge Summary ---
Discharge Summary Hospital Course Date of Admission Sep 13, 2019 at 19:48 Date of Discharge 09/17/2019 Admitting Diagnosis alcohol withdrawal, LGIB HPI Leeroy Paige is a 53 year old male who was admitted on Sep 13, 2019 at 19: 48 for Alcohol Withdrawl, Lower Gastrointestinal Bleed Consultations Gastroenterology Hospital Course 53 year old male with GIB (upper vs lower), more likely upper from etoh abuse, fatty liver vs cirrhosis and ETOH withdrawal, etoh hepatitis. No evidence of pancreatitis. Patient was admitted for etoh withdrawal and possible GI bleed. H/ H remained stable and due to hemodynamic instability, EGD deferred to as outpatient. His ultrasound showed fatty liver. He was started on low dose lactulose for elevated ammonia. He was counselled on etoh abstinence. SW consulted for rehab programs. He will follow with GI as outpatient. Today o exam he is alert, awake and oriented x3. In no distress. Lungs cta cori, heart: s1s1, no m/r/g #Etoh intoxication and withdrawal Admitted to telemetry CIWA protocol Ativan Librium #GIB GI consult with Dr. Alonso NPO--> can advance diet since no evidence of bleeding and EGD on hold for now Monitor H/H and coags- stable PPI EGD/colonoscopy per GI- cancelled due to tachycardia- Serial H/H stable. To follow up outpatient # Fatty liver vs cirrhosis #Thrombocytopenia due to liver disease- monitor #Etoh hepatitis etoh abstinence, patient counselled reg abstinence from etoh and danger of . elevated ammonia- Start lactulose 10 TID #persistent hiccups- much improved -Thorazine prn VTE ppx: SCD boots GI ppx: PPI Disposition: Home, 09/17 I spent 35 minutes during this encounter. >50% spent on care coordination and counselling. Case discussed with RN and customs consultant Time of this note may no refect time of encounter Discharge Medications New Medications: Pantoprazole (Pantoprazole) 20 Mg Tablet.dr 20 MG ORAL DAILY for 30 Days, #10 TAB 0 Refills Chlordiazepoxide (Chlordiazepoxide HCl) 25 Mg Capsule 25 MG ORAL BID for 14 Days, #28 CAP Lactulose (Lactulose) 10 Gm/15 Ml Solution 10 GM ORAL THREE TIMES A DAY for 10 Days, #1 B 2 Refills Thiamine Mononitrate (Vitamin B-1) 100 Mg Tablet 100 MG ORAL DAILY for 30 Days, #30 TAB Discontinued Medications: Chlordiazepoxide (Chlordiazepoxide HCl) 25 Mg Capsule 25 MG ORAL THREE TIMES A DAY, #21 CAP 0 Refills No Known Medications* (NKM - No Known Medications*) . 0 . Discharge Condition Upon Discharge: stable Discharge Disposition Patient was discharged to home Discharge Diagnoses: (1) Fatty (change of) liver, not elsewhere classified (2) Intractable hiccups (3) Anemia (4) Gastrointestinal hemorrhage (5) Alcohol withdrawal (6) alcohol intoxication (7) Thrombocytopenia Josh Cervantes M.D. Sep 17, 2019 08:03
--- NOTE | 2019-09-17 08:30 | NUR ---
NURSE NOTES: Received discharge order from Dr. Cervantes. Per Dr. Cervantes, she will put the discharge medication as soon as possible. Will continue plan of care until clarification made regarding discharge medication.
--- NOTE | 2019-09-17 08:45 | NUR ---
NURSE NOTES: Notified Dr. Cervantes regarding abnormal lab results including WBC, hemoglobin, platelet, positive OB stool, potassium, AST, and ALT. Dr. Cervantes ordered 60mEq PO KCL once. Will carry out the order as soon as possible. Will continue plan of care.
[2019-09-17] MEDS ORDERED: VITAMIN B-1100 M2 ORAL (09:05)
[2019-09-17] MEDS ORDERED: LACTULOSE10 GM/155 ORAL (09:05)
[2019-09-17] MEDS ORDERED: PANTOPRAZOLE SO20 MG ORAL (09:05)
[2019-09-17] MEDS ORDERED: LIBRIUM25 MG ORAL (09:05)
[2019-09-17] MEDS: Pantoprazole Inj IV SCH (09:32)
[2019-09-17] MEDS: Lactulose 10gm/15ml UDC ORAL SCH ×2 (09:33→12:27)
[2019-09-17] MEDS: chlordiazePOXIDE 25mg Cap ORAL SCH ×2 (09:33→12:27)
[2019-09-17] MEDS: Thiamine 100mg tab ORAL SCH (09:34)
--- NOTE | 2019-09-17 11:34 | Cardiology Report ---
APPROVED REPORT EKG Measurement Heart [id number] Sinus tachycardia Otherwise normal ECG
[2019-09-17 12:00] VITALS: BP 123/96
--- NOTE | 2019-09-17 12:00 | NUR ---
NURSE NOTES: Notified to Dr. Cervantes regarding the patient's tachycardia. Per Dr. Cervantes, okay to be discharged without medical intervention. Will carry out discharge order as clarification has been made with Dr. Cervantes. Will continue plan of care upon discharge.
--- NOTE | 2019-09-17 13:55 | NUR ---
NURSE NOTES: The patient got safely discharged back to sister's home in a stable condition. Informed the patient's discharge to Florinda, the patient's daughter and next of kin. The patient has been stable in terms of vital signs and physical symptoms. IV, nameband, and tele monitoring box removed by the primary nurse. Discharge instruction given to the patient and signed by the patient. The patient's belongings check with the patient and signed by the patient. Paper prescription given and electronic prescription explained the patient and verbalized understanding. Dr. Cervantes referred the patient to Dr. Alonso for outpatient EGD and colonoscopy. For hypokalemia, 60mEq PO KCL given per order. Notified Dr. Cervantes regarding the patient's tachycardia. Per Dr. Cervantes, okay to be discharged without medical intervention. Homeless coordinator screened the patient for possible homelessness per Florinda, the daughter's report. However, the patient verbalized that he lives at his sister's home. He verbalized that he is not a homeless. He is alert and oriented x4. Per homeless coordinator, he is not a homeless as he verbalized that he is not homeless as he is alert and oriented x4. Resource provided for substance abuse and possible housing. The patient's skin is intact. In short, the patient got safely discharged back to sister's home via taxi in stable condition in terms of vital signs and physical symptoms.
--- NOTE | 2019-09-17 14:06 | NUR ---
Social Work This Sw received a consult due to substance abuse and homeless. This Sw met with patient (using French Interpretation, VAN Forbes) to provide substance abuse resources and advised patient to discontinue substance abuse (health risks provided); patient does not appear motivated for change at this time. Patient plans to discharge to home with his sister, remains alert/oriented x4, making his own decisions, remains independent with all ADLs, ambulation.
--- NOTE | 2019-09-17 15:25 | General Progress Note ---
Assessment/Plan Problem List: (1) Cirrhosis ICD Codes: K74.60 - Unspecified cirrhosis of liver SNOMED: 86772860 (2) Alcohol withdrawal ICD Codes: F10.239 - Alcohol dependence with withdrawal, unspecified SNOMED: 093746412 Qualifiers: Qualified Codes: F10.230 - Alcohol dependence with withdrawal, uncomplicated (3) Thrombocytopenia ICD Codes: D69.6 - Thrombocytopenia, unspecified SNOMED: 194603961 (4) GIB (gastrointestinal bleeding) ICD Codes: K92.2 - Gastrointestinal hemorrhage, unspecified SNOMED: 74795759 Status: stable Assessment/Plan: abd us>>> fatty live ammonia level>> mildly elevated>> low dose lactulose ppi EGD canceled by anesthesia due to tachycardia>>stable H&H>>> patient to fu as out patient Subjective Allergies: Coded Allergies: No Known Allergies (Verified , 04/13/11) Objective Last 24 Hour Vital Signs Date Time Temp Pulse Resp B/P (MAP) Pulse Ox O2 Delivery O2 Flow Rate FiO2 09/17/19 12:00 97.7 117 18 123/96 (105) 100 09/17/19 09:00 Room Air 09/17/19 08:00 110 09/17/19 08:00 96.3 113 20 132/98 (109) 99 09/17/19 04:00 94 09/17/19 04:00 98.3 94 18 121/84 (96) 98 09/17/19 00:00 90 09/17/19 00:00 98.0 93 16 123/82 (96) 98 09/16/19 21:00 Room Air 09/16/19 20:00 110 09/16/19 20:00 98.4 103 16 118/80 (93) 99 09/16/19 19:09 130 134/95 09/16/19 16:00 96.6 107 18 134/95 (108) 98 09/16/19 16:00 115 Intake and Output 09/16/19 09/17/19 19:00 07:00 Intake Total 800 ml 240 ml Output Total 1 ml Balance 800 ml 239 ml Intake Oral 800 ml 240 ml Output Urine Total 1 ml # Voids 4 3 # Bowel Movements 2 2 Laboratory Tests 09/17/19 06:04: White Blood Count 3.8L, Red Blood Count 3.08L, Hemoglobin 10.2L, Hematocrit 30.1L, Mean Corpuscular Volume 98, Mean Corpuscular Hemoglobin 32.9H, Mean Corpuscular Hemoglobin Concent 33.8, Red Cell Distribution Width 12.0, Platelet Count 61#L, Mean Platelet Volume 8.6, Neutrophils (%) (Auto) , Lymphocytes (%) ( Auto) , Monocytes (%) (Auto) , Eosinophils (%) (Auto) , Basophils (%) (Auto) , Differential Total Cells Counted 100, Neutrophils % (Manual) 56, Lymphocytes % ( Manual) 30, Monocytes % (Manual) 5, Eosinophils % (Manual) 8H, Basophils % ( Manual) 1, Band Neutrophils 0, Platelet Estimate DecreasedL, Platelet Morphology Normal, Hypochromasia 1+, Anisocytosis 1+, Sodium Level 138, Potassium Level 3.3L, Chloride Level 101, Carbon Dioxide Level 25, Anion Gap 13 , Blood Urea Nitrogen 12, Creatinine 0.8, Estimat Glomerular Filtration Rate > 60, Glucose Level 117H, Calcium Level 8.9, Total Bilirubin 0.9, Aspartate Amino Transf (AST/SGOT) 108H, Alanine Aminotransferase (ALT/SGPT) 91H, Alkaline Phosphatase 114, Total Protein 6.8, Albumin 3.2L, Globulin 3.6, Albumin/ Globulin Ratio 0.9L Height (Feet): 5 Height (Inches): 7.00 Weight (Pounds): 100 General Appearance: alert EENT: normal ENT inspection Neck: supple Cardiovascular: normal rate Respiratory/Chest: decreased breath sounds Abdomen: normal bowel sounds, non tender, soft Extremities: non-tender Dean Alonso MD Sep 17, 2019 15:25
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
--- NOTE | 2019-09-17 16:31 | NUR ---
*-* INSURANCE*-* DISCHARGE SUMMARY HAS BEEN FAXED TO: [facility] Ref#[id number] CM: Garret ext [phone]
== END 2019-09-17 14:05 | disposition home or self-care (01) | DRG 253 ==
LOC: EDBD 17:37 → EDUNIT# 17:37 → EMR 18:24 → 2E 19:48 → EDBEDREQ 20:41
DX: K92.2 Gastrointestinal hemorrhage, unspecified (principal); F10.239 Alcohol dependence with withdrawal, unspecified; K74.60 Unspecified cirrhosis of liver; F10.229 Alcohol dependence with intoxication, unspecified; R06.6 Hiccough; I10 Essential (primary) hypertension; E11.9 Type 2 diabetes mellitus without complications; K70.10 Alcoholic hepatitis without ascites; D69.6 Thrombocytopenia, unspecified; R11.10 Vomiting, unspecified; K76.0 Fatty (change of) liver, not elsewhere classified; D64.9 Anemia, unspecified
CPT/HCPCS: 36415; 76700; 80048; 80053; 82140; 82248; 82270; 83690; 85007; 85025; 85610; 85730; 86850; 86900; 86901; 93005; 96361; 96372; 96374; 96375; 96376; 99291; G0480; J2405; J7030; J8499

== ENCOUNTER 2020-05-20 22:28 | Emergency (ER) | payer MEDICAID, OTHER ==
[~2020-05-20] VITALS: Ht 162.6 cm; Wt 59.0 kg
[~2020-05-20 22:28] MED LIST changes: +LACTULOSE10 GM/155 ORAL; +PANTOPRAZOLE SO20 MG ORAL; +VITAMIN B-1100 M2 ORAL
[2020-05-20 22:45] VITALS: BP 156/85
--- NOTE | 2020-05-20 22:55 | Emergency Room Report ---
History of Present Illness General Chief Complaint: Alcohol Intoxication Source: Patient Present Illness HPI Disclaimer: Please note that this report is being documented using [employer] technology. This can lead to erroneous entry secondary to incorrect interpretation by the dictating instrument. HPI: 54-year-old male with history of chronic alcohol abuse, fatty liver presents for evaluation of alcohol intoxication complaining of hiccups and vomiting. Patient states he has been on a drinking. For proximally 1 month. He drinks tequila daily. He states he has vomited a lot but denies any hematemesis, melena, hematochezia, hemoptysis, chest pain, shortness of breath, fever, chills, cough. He reports mild epigastric pain after vomiting but otherwise denies abdominal pain. Denies dysuria hematuria. Patient states he simply wants IV fluids and something for vomiting. He does not want to go to detox, rehab or address his drinking. He states he has a PMD. PMH: Alcohol abuse, fatty liver, alcoholic hepatitis PSH: Reviewed Allergies: Reviewed Social Hx: Daily alcohol use Allergies: Coded Allergies: No Known Allergies (Verified , 04/13/11) COVID-19 Screening Contact w/high risk pt: No Experienced COVID-19 symptoms?: No COVID-19 Testing performed EXPLOSIVE TECHNICIAN: No Nursing Documentation-PMH Past Medical History: No History, Except For Hx Cardiac Problems: No - PNA CIRRHOSIS Hx Hypertension: Yes Hx Diabetes: Yes Hx Cancer: No Hx Gastrointestinal Problems: Yes - Liver problem Hx Neurological Problems: No Review of Systems All Other Systems: negative except mentioned in HPI Physical Exam Vital Signs Date Time Temp Pulse Resp B/P (MAP) Pulse Ox O2 Delivery O2 Flow Rate FiO2 05/20/20 22:43 98.8 115 18 156/85 (108) 95 Room Air General: Awake and alert, no acute distress, hiccuping HEENT: NC/AT. EOMI. Cardiovascular: Tachycardic. S1 and S2 normal. No murmur appreciated Resp: Normal work of breathing. No cough, wheezing or crackles appreciated Abdomen: Abdomen is soft, nondistended. Nontender Skin: Intact. No abrasions, laceration or rash over the exposed skin MSK: Normal tone and bulk. Moving all extremities. No obvious deformity. Neuro: Awake and alert. Appears mildly intoxicated but mentating appropriately. Medical Decision Making Diagnostic Impression: Primary Impression: Acute alcoholic intoxication Additional Impressions: Hiccup Thrombocytopenia Vomiting ER Course Is a 54-year-old male with a history of chronic alcohol abuse presents for evaluation of vomiting. He is been on a drinking binge for 1 month but is not interested in detox or rehab services at this time. He reports mild epigastric pain was abdomen is soft. Differential includes is not limited to alcohol intoxication, pancreatitis, gastritis, GERD, alcoholic hepatitis, alcohol withdrawal to name a few. No evidence of acute withdrawal. Labs were obtained showing thrombocytopenia consistent with prior labs and the patient's history of chronic alcohol abuse. Renal function and lipase within normal limits. No vomiting in the ED after receiving antiemetics and IV fluids. Patient stable for outpatient follow-up. Will be discharged to the care of his brother. We will refill his thiamine, folic acid, Protonix and prescribe Zofran. Encouraged him to follow-up regarding his alcohol abuse with the resources listed in his discharge paperwork. Discussed reasons to return to the ED. Laboratory Tests Test 05/20/20 22:50 White Blood Count 8.4 K/UL (4.8-10.8) Red Blood Count 4.60 M/UL (4.70-6.10) L Hemoglobin 13.2 G/DL (14.2-18.0) L Hematocrit 41.8 % (42.0-52.0) L Mean Corpuscular Volume 91 FL (80-99) Mean Corpuscular Hemoglobin 28.7 PG (27.0-31.0) Mean Corpuscular Hemoglobin Concent 31.6 G/DL (32.0-36.0) L Red Cell Distribution Width 17.4 % (11.6-14.8) H Platelet Count 39 K/UL (150-450) L Mean Platelet Volume 9.2 FL (6.5-10.1) Neutrophils (%) (Auto) % (45.0-75.0) Lymphocytes (%) (Auto) % (20.0-45.0) Monocytes (%) (Auto) % (1.0-10.0) Eosinophils (%) (Auto) % (0.0-3.0) Basophils (%) (Auto) % (0.0-2.0) Differential Total Cells Counted 100 Neutrophils % (Manual) 39 % (45-75) L Lymphocytes % (Manual) 54 % (20-45) H Monocytes % (Manual) 2 % (1-10) Eosinophils % (Manual) 5 % (0-3) H Basophils % (Manual) 0 % (0-2) Band Neutrophils 0 % (0-8) Platelet Estimate Decreased L Platelet Morphology Normal Hypochromasia 1+ Anisocytosis 1+ Sodium Level 138 MMOL/L (136-145) Potassium Level 3.7 MMOL/L (3.5-5.1) Chloride Level 94 MMOL/L (98-107) L Carbon Dioxide Level 26 MMOL/L (21-32) Anion Gap 18 mmol/L (5-15) H Blood Urea Nitrogen 12 mg/dL (7-18) Creatinine 1.3 MG/DL (0.55-1.30) Estimated Glomerular Filtration Rate 58.0 mL/min (>60) Glucose Level 126 MG/DL (74-106) H Calcium Level 8.8 MG/DL (8.5-10.1) Total Bilirubin 1.0 MG/DL (0.2-1.0) Aspartate Amino Transferase (AST) 151 U/L (15-37) H Alanine Aminotransferase (ALT) 75 U/L (12-78) Alkaline Phosphatase 119 U/L (46-116) H Total Protein 9.4 G/DL (6.4-8.2) H Albumin 4.3 G/DL (3.4-5.0) Globulin 5.1 g/dL Albumin/Globulin Ratio 0.8 (1.0-2.7) L Lipase 301 U/L (73-393) Serum Alcohol 344 mg/dL Last Vital Signs Date Time Temp Pulse Resp B/P (MAP) Pulse Ox O2 Delivery O2 Flow Rate FiO2 05/20/20 22:43 98.8 115 18 156/85 (108) 95 Room Air Disposition: HOME, SELF-CARE Condition: Stable Scripts Ondansetron Odt* (ZOFRAN ODT*) 4 Mg Tab.rapdis 4 MG BC EVERY 6 HOURS PRN for Nausea & Vomiting, #10 TAB 0 Refills Prov: Cornel Hurt MD 05/20/20 Folic Acid* (FOLIC ACID*) 1 Mg Tablet 1 MG ORAL DAILY, #30 TAB Prov: Cornel Hurt MD 05/20/20 Pantoprazole (PANTOPRAZOLE) 20 Mg Tablet.dr 20 MG ORAL DAILY for 30 Days, #10 TAB 0 Refills Prov: Cornel Hurt MD 05/20/20 Thiamine Mononitrate (VITAMIN B-1) 100 Mg Tablet 100 MG ORAL DAILY for 30 Days, #30 TAB Prov: Cornel Hurt MD 05/20/20 Cornel Hurt MD May 20, 2020 22:55
[2020-05-20 23:05] LABS: HEMATOCRIT 41.8 % (42.0-52.0); HEMOGLOBIN 13.2 G/DL (14.2-18.0); MEAN CORPUSCULAR VOLUME 91 FL (80-99); PLATELET COUNT 39 K/UL (150-450); RED CELL DISTRIBUTION WIDTH 17.4 % (11.6-14.8); WHITE BLOOD COUNT 8.4 K/UL (4.8-10.8)
[2020-05-20 23:15] LABS: ANION GAP 18 mmol/L (5-15); BLOOD UREA NITROGEN 12 mg/dL (7-18); CALCIUM 8.8 MG/DL (8.5-10.1); CARBON DIOXIDE 26 MMOL/L (21-32); CHLORIDE 94 MMOL/L (98-107); CREATININE 1.3 MG/DL (0.55-1.30); POTASSIUM 3.7 MMOL/L (3.5-5.1); SODIUM 138 MMOL/L (136-145)
[2020-05-20 23:20] LABS: ALANINE AMINOTRANSFERASE 75 U/L (12-78); ALBUMIN 4.3 G/DL (3.4-5.0); ALBUMIN/GLOBULIN RATIO 0.8 (1.0-2.7); ALKALINE PHOSPHATASE 119 U/L (46-116); ASPARTATE AMINO TRANSFERASE 151 U/L (15-37)
[2020-05-20] MEDS ORDERED: VITAMIN B-1100 M2 ORAL (23:41)
[2020-05-20] MEDS ORDERED: PANTOPRAZOLE SO20 MG ORAL (23:41)
[2020-05-20] MEDS ORDERED: ONDANSETRON ODT4 MG BC (23:41)
[2020-05-20] MEDS ORDERED: FOLIC ACID1 MG ORAL (23:41)
[2020-05-21 00:30] VITALS: BP 135/80
== END 2020-05-21 00:30 | disposition home or self-care (01) ==
LOC: EMR 22:57
DX: F10.129 Alcohol abuse with intoxication, unspecified (principal); R06.6 Hiccough; D69.6 Thrombocytopenia, unspecified; R11.10 Vomiting, unspecified; I10 Essential (primary) hypertension; E11.9 Type 2 diabetes mellitus without complications; K74.60 Unspecified cirrhosis of liver; R00.0 Tachycardia, unspecified
CPT/HCPCS: 36415; 80053; 83690; 85007; 85025; 96361; 96374; G0480; J2405; J7030; Z7502; 99284

== ENCOUNTER 2020-07-27 17:21 | Emergency (ER) | payer OTHER ==
[~2020-07-27] VITALS: Ht 165.1 cm; Wt 63.5 kg
[~2020-07-27 17:21] MED LIST changes: +FOLIC ACID1 MG ORAL; +ONDANSETRON ODT4 MG BC
[2020-07-27] MEDS ORDERED: Pantoprazole Inj IV ONE (17:30)
[2020-07-27 17:42] VITALS: BP 158/72
--- NOTE | 2020-07-27 17:51 | Emergency Room Report ---
History of Present Illness General Chief Complaint: Vomiting Source: Patient Present Illness HPI Patient is a 54-year-old male who presents for increased epigastric pain and reported hematemesis. Prior history of alcohol abuse. States that he had had one 12 ounce beer today. Reportedly had vomited a very small amount of blood. Previous history of GI bleeding in the past as well as thrombocytopenia. Denies any bloody stools. Allergies: Coded Allergies: No Known Allergies (Verified , 04/13/11) COVID-19 Screening Contact w/high risk pt: No Experienced COVID-19 symptoms?: No COVID-19 Testing performed ASSEMBLER GOLD FRAME: No Patient History Past Medical History: see triage record Reviewed Nursing Documentation: PMH: Agreed; PSxH: Agreed Nursing Documentation-PMH Hx Cardiac Problems: No - PNA CIRRHOSIS Hx Hypertension: Yes Hx Diabetes: Yes Hx Cancer: No Hx Gastrointestinal Problems: Yes - Liver problem Hx Neurological Problems: No Review of Systems All Other Systems: negative except mentioned in HPI Physical Exam Vital Signs Date Time Temp Pulse Resp B/P (MAP) Pulse Ox O2 Delivery O2 Flow Rate FiO2 07/27/20 17:21 98.2 87 19 130/90 (103) 99 Sp02 EP Interpretation: reviewed, normal General Appearance: normal inspection, well appearing, no apparent distress, alert, GCS 15 Head: atraumatic ENT: normal ENT inspection, hearing grossly normal, normal voice Neck: normal inspection, full range of motion, supple, no bony tend Respiratory: normal inspection, lungs clear, normal breath sounds, no respiratory distress, no retraction, no wheezing Cardiovascular #1: regular rate, rhythm, no edema Gastrointestinal: normal inspection, normal bowel sounds, non tender, soft, no guarding, no hernia Genitourinary: no CVA tenderness Musculoskeletal: normal inspection, back normal, normal range of motion Neurologic: alert, motor strength/tone normal, plate straightener III-XII nml as tested, responsive, speech normal, normal inspection Psychiatric: normal inspection, judgement/insight normal, mood/affect normal Medical Decision Making Diagnostic Impression: Primary Impression: Acute alcoholic intoxication ER Course Patient is a 54-year-old male who presents for increased abdominal discomfort. Differential diagnosis include was not limited to gastritis, pancreatitis, alcohol intoxication among others. Patient was noted to have some history of possible recent bleeding. Per patient's report he had 1 alcoholic drink. Patient's overall exam is benign. Laboratory testing showed initial adequate hemoglobin. Patient given IV Protonix. Laboratory testing showed blood alcohol inconsistent with patient's statements. Labs Test 07/27/20 17:30 White Blood Count 6.2 K/UL (4.8-10.8) Red Blood Count 4.44 M/UL (4.70-6.10) Hemoglobin 12.8 G/DL (14.2-18.0) Hematocrit 39.1 % (42.0-52.0) Mean Corpuscular Volume 88 FL (80-99) Mean Corpuscular Hemoglobin 28.7 PG (27.0-31.0) Mean Corpuscular Hemoglobin Concent 32.6 G/DL (32.0-36.0) Red Cell Distribution Width 15.6 % (11.6-14.8) Platelet Count 45 K/UL (150-450) Mean Platelet Volume 10.3 FL (6.5-10.1) Neutrophils (%) (Auto) % (45.0-75.0) Lymphocytes (%) (Auto) % (20.0-45.0) Monocytes (%) (Auto) % (1.0-10.0) Eosinophils (%) (Auto) % (0.0-3.0) Basophils (%) (Auto) % (0.0-2.0) Prothrombin Time 14.2 SEC (9.30-11.50) Prothromb Time International Ratio 1.3 (0.9-1.1) Activated Partial Thromboplast Time 29 SEC (23-33) Urine Color Yellow Urine Appearance Clear Urine pH 7 (4.5-8.0) Urine Specific [place] 1.005 (1.005-1.035) Urine Protein 2+ (NEGATIVE) Urine Glucose (UA) Negative (NEGATIVE) Urine Ketones 2+ (NEGATIVE) Urine Blood 1+ (NEGATIVE) Urine Nitrite Negative (NEGATIVE) Urine Bilirubin 1+ (NEGATIVE) Urine Ictotest Negative (NEGATIVE) Urine Urobilinogen 8 MG/DL (0.0-1.0) Urine Leukocyte Esterase 1+ (NEGATIVE) Urine RBC 0-2 /HPF (0 - 0) Urine WBC 0-2 /HPF (0 - 0) Urine Squamous Epithelial Cells None /LPF (NONE/OCC) Urine Bacteria Few /HPF (NONE) Sodium Level 141 MMOL/L (136-145) Potassium Level 3.0 MMOL/L (3.5-5.1) Chloride Level 98 MMOL/L (98-107) Carbon Dioxide Level 27 MMOL/L (21-32) Anion Gap 16 mmol/L (5-15) Blood Urea Nitrogen 6 mg/dL (7-18) Creatinine 1.1 MG/DL (0.55-1.30) Estimat Glomerular Filtration Rate > 60 mL/min (>60) Glucose Level 135 MG/DL (74-106) Calcium Level 9.0 MG/DL (8.5-10.1) Total Bilirubin 1.6 MG/DL (0.2-1.0) Direct Bilirubin 0.8 MG/DL (0.0-0.3) Aspartate Amino Transf (AST/SGOT) 143 U/L (15-37) Alanine Aminotransferase (ALT/SGPT) 67 U/L (12-78) Alkaline Phosphatase 127 U/L (46-116) Total Protein 9.0 G/DL (6.4-8.2) Albumin 3.8 G/DL (3.4-5.0) Globulin 5.2 g/dL Albumin/Globulin Ratio 0.7 (1.0-2.7) Lipase 209 U/L (73-393) Serum Alcohol 295 mg/dL Last Vital Signs Date Time Temp Pulse Resp B/P (MAP) Pulse Ox O2 Delivery O2 Flow Rate FiO2 07/27/20 17:42 117 18 07/27/20 17:42 98.0 158/72 99 Status: improved Disposition: ADMITTED INPATIENT Condition: Stable Ousmane Birmingham MD Jul 27, 2020 17:51
[2020-07-27 17:58] LABS: ANION GAP 16 mmol/L (5-15); BLOOD UREA NITROGEN 6 mg/dL (7-18); CARBON DIOXIDE 27 MMOL/L (21-32); CHLORIDE 98 MMOL/L (98-107); CREATININE 1.1 MG/DL (0.55-1.30); SODIUM 141 MMOL/L (136-145)
[2020-07-27 18:02] LABS: INR 1.3 (0.9-1.1)
[2020-07-27 18:10] LABS: ALANINE AMINOTRANSFERASE 67 U/L (12-78); ALBUMIN 3.8 G/DL (3.4-5.0); ALBUMIN/GLOBULIN RATIO 0.7 (1.0-2.7); ALKALINE PHOSPHATASE 127 U/L (46-116); ASPARTATE AMINO TRANSFERASE 143 U/L (15-37); BILIRUBIN,TOTAL 1.6 MG/DL (0.2-1.0)
[2020-07-27 18:17] LABS: APPEARANCE,URINE CLEAR; BILIRUBIN, URINE 1+ (NEGATIVE); GLUCOSE, URINE (UA) NEGATIVE (NEGATIVE); KETONES,URINE 2+ (NEGATIVE); LEUKOCYTE ESTERASE ,URINE 1+ (NEGATIVE); NITRITE,URINE NEGATIVE (NEGATIVE); PH,URINE 7 (4.5-8.0); PROTEIN,URINE 2+ (NEGATIVE); UROBILINOGEN,URINE 8 MG/DL (0.0-1.0)
[2020-07-27 18:18] LABS: BILIRUBIN,DIRECT 0.8 MG/DL (0.0-0.3)
[2020-07-27 18:20] LABS: HEMATOCRIT 39.1 % (42.0-52.0); HEMOGLOBIN 12.8 G/DL (14.2-18.0); MEAN CORPUSCULAR VOLUME 88 FL (80-99); PLATELET COUNT 45 K/UL (150-450); RED BLOOD COUNT 4.44 M/UL (4.70-6.10); RED CELL DISTRIBUTION WIDTH 15.6 % (11.6-14.8); WHITE BLOOD COUNT 6.2 K/UL (4.8-10.8)
[2020-07-27 18:21] LABS: COLOR,URINE YELLOW
[2020-07-27] MEDS ORDERED: Thiamine HCl 100 MG in D5W 55 ML IVPB ONE (19:15)
[2020-07-27 20:06] LABS: HEMATOCRIT 38.2 % (42.0-52.0); HEMOGLOBIN 12.6 G/DL (14.2-18.0); MEAN CORPUSCULAR VOLUME 88 FL (80-99); PLATELET COUNT 42 K/UL (150-450); RED BLOOD COUNT 4.33 M/UL (4.70-6.10); RED CELL DISTRIBUTION WIDTH 16.1 % (11.6-14.8); WHITE BLOOD COUNT 5.2 K/UL (4.8-10.8)
[2020-07-27] MEDS ORDERED: ATIVAN1 MG ORAL (20:42)
[2020-07-27] MEDS ORDERED: OMEPRAZOLE20 M4 PO (20:42)
[2020-07-27] MEDS ORDERED: LORazepam 1mg tab ORAL ONE (20:45)
[2020-07-27 21:25] VITALS: BP 120/70
== END 2020-07-27 21:30 | disposition home or self-care (01) ==
LOC: EDBD 17:21 → EDUNIT# 17:21 → EMR 17:54
DX: F10.129 Alcohol abuse with intoxication, unspecified (principal); I10 Essential (primary) hypertension; E11.8 Type 2 diabetes mellitus with unspecified complications; Y90.8 Blood alcohol level of 240 mg/100 ml or more; Z79.899 Other long term (current) drug therapy
CPT/HCPCS: 36415; 80053; 81003; 82248; 83690; 85007; 85025; 85610; 85730; 86850; 86900; 86901; 96365; 96375; G0480; J7040; S0164; Z7502; 99284

== ENCOUNTER 2020-12-01 08:47 | Emergency (ER) | payer OTHER ==
[~2020-12-01] VITALS: Ht 162.6 cm; Wt 65.8 kg
[~2020-12-01 08:47] MED LIST changes: +ATIVAN1 MG ORAL; +OMEPRAZOLE20 M4 PO
[2020-12-01 09:00] VITALS: BP 154/96
[2020-12-01] MEDS ORDERED: FAMOTIDINE20 MG ORAL ×2 (09:12→11:38)
[2020-12-01] MEDS ORDERED: CEPHALEXIN500 MG ORAL (09:12)
[2020-12-01] MEDS ORDERED: ONDANSETRON ODT4 MG BC ×2 (09:12→11:38)
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
[2020-12-01] MEDS ORDERED: Omnipaque-300 100ml vial INJ ONE (09:15)
[2020-12-01] MEDS ORDERED: LORazepam Inj 2mg/ml 1ml IV ONE (09:15)
--- NOTE | 2020-12-01 09:36 | NUR ---
ED Nurse Note: pt was taken to CT.
[2020-12-01 09:50] LABS: MEAN CORPUSCULAR VOLUME 94 FL (80-99); PLATELET COUNT 36 K/UL (150-450); RED BLOOD COUNT 4.24 M/UL (4.70-6.10); RED CELL DISTRIBUTION WIDTH 18.4 % (11.6-14.8); WHITE BLOOD COUNT 10.2 K/UL (4.8-10.8)
[2020-12-01 09:54] LABS: ANION GAP 21 mmol/L (5-15); BLOOD UREA NITROGEN 17 mg/dL (7-18); CALCIUM 8.9 MG/DL (8.5-10.1); CARBON DIOXIDE 22 MMOL/L (21-32); CHLORIDE 98 MMOL/L (98-107); CREATININE 1.2 MG/DL (0.55-1.30); POTASSIUM 3.6 MMOL/L (3.5-5.1); SODIUM 141 MMOL/L (136-145)
--- NOTE | 2020-12-01 10:01 | NUR ---
ED Nurse Note:\
--- NOTE | 2020-12-01 10:01 | NUR ---
ED Nurse Note: Pt returned from CT.
[2020-12-01 10:04] LABS: ALANINE AMINOTRANSFERASE 64 U/L (12-78); ALBUMIN 3.7 G/DL (3.4-5.0); ALBUMIN/GLOBULIN RATIO 0.7 (1.0-2.7); ALKALINE PHOSPHATASE 85 U/L (46-116); ASPARTATE AMINO TRANSFERASE 149 U/L (15-37); BILIRUBIN,TOTAL 3.9 MG/DL (0.2-1.0)
[2020-12-01 10:06] LABS: BILIRUBIN,DIRECT 2.7 MG/DL (0.0-0.3)
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
--- NOTE | 2020-12-01 11:10 | Diagnostic Imaging Report ---
Procedure: XRAY Chest 1v Reason for study: Reason For Exam: PAIN Comparison films: 05/25/2019. FINDINGS: A single one view chest is obtained. Vascularity is normal. The lung mixon are clear bilaterally. Cardiac and mediastinal silhouette are within normal limits. CP angles are sharp. Old left rib fractures again noted. IMPRESSION: Acute
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
--- NOTE | 2020-12-01 11:58 | NUR ---
ED Nurse Note: CALLED [employer] [phone] RECEIVED MY REPORT OF THE PT.'S INCIDENT
[2020-12-01 12:17] VITALS: BP 126/76
--- NOTE | 2020-12-01 12:17 | NUR ---
ER DISCHARGE NOTE: Patient is cleared to be discharged per ERMD, pt is aox4, on room air, with stable vital signs. pt was given dc and prescription instructions, pt was able to verbalize understanding, pt id band and iv site removed without complications. pt is able to ambulate with steady gait. pt took all belongings. Pt was picked up by his brother at ER. ambulatory with steady gait.
== END 2020-12-01 12:17 | disposition home or self-care (01) ==
LOC: EMR 09:52
DX: F10.920 Alcohol use, unspecified with intoxication, uncomplicated (principal); S09.90XA Unspecified injury of head, initial encounter; I10 Essential (primary) hypertension; E11.9 Type 2 diabetes mellitus without complications; D47.3 Essential (hemorrhagic) thrombocythemia; Y04.2XXA Assault by strike against or bumped into by another person, initial encounter; Y93.9 Activity, unspecified; Y92.9 Unspecified place or not applicable; Z85.9 Personal history of malignant neoplasm, unspecified; Y90.7 Blood alcohol level of 200-239 mg/100 ml
CPT/HCPCS: 36415; 70450; 71045; 71260; 74177; 80053; 80307; 82248; 85007; 85025; 96361; 96374; 96375; G0480; G0481; J2405; J7030; Q9965; Z7502; 99284